=== PATIENT | male | born 1945 | race Caucasian/White ===

== ENCOUNTER 2020-11-24 04:56 | Emergency (ER) | payer MEDICARE, OTHER, SELFPAY ==
--- NOTE | ~2020-11-24 | XR_ITS ---
EXAMINATION: XR tibia fibula LT 2V DATE: 11/24/2020 06:03 INDICATION: Left lower leg injury. TECHNIQUE: 2 views of left tibia and fibula on 3 radiographs were obtained. COMPARISON: None. FINDINGS: There is a total left knee arthroplasty with patellar resurfacing in near-anatomic alignmen t. There is lucency subjacent to the medial aspect of the tibial tray. No fracture. The talar dome is normal. IMPRESSION: 1. Total left knee arthroplasty in near-anatomic alignment. Lucency subjacent to the medial aspect of the tibial tray may be the normal postoperative appearance or a sign of loosening or infection. Comp arison with postoperative radiographs is recommended. Reviewed, dictated and finalized at location A. IMPRESSION: 1. Total left knee arthroplasty in near-anatomic alignment. Lucency subjacent t o the medial aspect of the tibial tray may be the normal postoperative appearan ce or a sign of loosening or infection. Comparison with postoperative radiograp hs is recommended.
[2020-11-24 05:14] VITALS: BP 134/64; PULSE 72; RESP 21; TEMP 36.8; O2SAT 98
[2020-11-24 05:43] VITALS: PULSE 77; RESP 20; TEMP 38.6; O2SAT 97
--- NOTE | 2020-11-24 05:54 | PC.NURSE ---
Pt to XRAY via stretcher at this time.
[2020-11-24 06:06] LABS: Basophils Percent Auto 0.3 % (0.2-1.2); Eosinophils Absolute Auto 0.1 K/mm3 (0-0.3); Eosinophils Percent Auto 1.1 % (0-4.4); Hematocrit 51.6 % (42.0-52.0); Hemoglobin 17.3 g/dL (14.0-18.0); Immature Granulocyte Absolute 0.05 K/mm3 (0.00-0.031); Immature Granulocyte Percent A 0.5 % (0-0.5); Lymphocytes Absolute Auto 0.48 K/mm3 (0.9-3.2); Lymphocytes Percent Auto 4.7 % (18.3-44.2); Mean Corpuscular HGB Conc 33.5 g/dl (32-36); Mean Corpuscular Volume 95.6 fl (80-100); Mean Platelet Volume 10.8 fl (7.4-10.4); Monocytes Absolute Auto 0.1 K/mm3 (0.1-0.6); Monocytes Percent Auto 1.2 % (2.6-8.5); Neutrophils Absolute Auto 9.3 K/mm3 (1.3-6.7); Neutrophils Percent Auto 92.2 % (45.5-73.1); Platelet Count Result 124 k/mm3 (150-375); Red Cell Distribution Width 12.7 % (11.5-14.5); White Blood Count 10.1 K/mm3 (4.5-10.0)
[2020-11-24 06:11] LABS: Lactic Acid Reflex 1.7 mmol/L (0.7-2.1)
[2020-11-24 06:17] LABS: Alanine Aminotransferase 52 U/L (4-50); Albumin Level 4.6 g/dL (3.5-5.1); Alkaline Phosphatase 49 U/L (38-126); Anion Gap 9 mmol/L (8-16); Aspartate Amino Transferase 63 U/L (17-59); Bilirubin,Total 0.9 mg/dL (0.2-1.3); Blood Urea Nitrogen 54 mg/dL (9-20); CRP < 0.5 mg/dL (<1.0); Calcium 9.4 mg/dL (8.4-10.2); Carbon Dioxide 30 mmol/L (22-30); Chloride 100 mmol/L (98-107); Estimated CRCL calculation 49 ml/min; Estimated Glomerular Filt Rate 42; Glucose 131 mg/dL (65-110); Potassium 4.3 mmol/L (3.4-5.0); Sodium 139 mmol/L (137-145)
[2020-11-24 06:19] LABS: INR 1.7; Prothrombin Time 19.4 Seconds (11.1-14.7)
--- NOTE | 2020-11-24 06:29 | ED.EXTPRO ---
HPI - Extremity Problem General Chief complaint: Extremity Problem,Nontraumatic Stated complaint: left leg pain and redness Time Seen by Provider: 11/24/20 05:17 History of Present Illness HPI Narrative: Patient presents with left lower extremity pain. Patient reports he woke up with a burning sensation around his ankle and he thinks maybe he scratched it in the middle of the night. His pain got progressively worse and is radiating up his legs he wanted to come in for evaluation. Ports pain is achy, constant and radiates up his leg, worse when he touches it. He also reports subjective fevers at home denies any nausea or vomiting denies any chest pain or shortness of breath. Related Data Home Medications Medication Instructions Recorded Confirmed azelaic acid 15 % topical gel 1 applic TOPICAL BID 03/27/19 06/21/20 clopidogrel 75 mg tablet 75 mg PO DAILY 03/27/19 06/21/20 duloxetine 30 mg capsule,delayed 30 mg PO BID 03/27/19 06/21/20 release folic acid 1 mg tablet 1 mg PO DAILY 03/27/19 06/21/20 methotrexate sodium 2.5 mg tablet 7.5 mg PO WEEKLY tablet 03/27/19 06/21/20 metoprolol succinate 25 mg 25 mg PO DAILY 03/27/19 06/21/20 tablet,extended release 24 hr promethazine 25 mg tablet 25 mg PO QID PRN 03/27/19 06/21/20 furosemide 20 mg tablet 20 mg PO .EVERY OTHER DAY tablet 08/03/19 06/21/20 hydroxychloroquine 200 mg tablet 200 mg PO ONCE tablet 08/03/19 06/21/20 lisinopril 10 mg tablet 10 mg PO DAILY tablet 08/03/19 06/21/20 meclizine 25 mg tablet 25 mg PO TID PRN 08/03/19 06/21/20 rivaroxaban 20 mg tablet 15 mg PO DAILY tablet 08/03/19 06/21/20 Allergies Allergy/AdvReac Type Severity Reaction Status Date / Time No Known Allergies Allergy Verified 11/24/20 05:19 Review of Systems Review of Systems: CONSTITUTIONAL: Reports subjective fevers at home EYES: Denies visual changes, redness, or discharge. ENT: Denies rhinorrhea, congestion, sore throat, or otalgia. CARDIOVASCULAR: Denies chest pain, palpitations, or edema. RESPIRATORY: Denies cough or dyspnea. GASTROINTESTINAL: Denies abdominal pain, nausea, vomiting, or diarrhea. GENITOURINARY: Denies dysuria or hematuria. SKIN: Denies rash or itching. MUSCULOSKELETAL: Denies back pain, or myalgia. NEUROLOGIC: Denies headache, numbness, dizziness, or weakness. PSYCHIATRIC: Denies anxiety or depression. All systems reviewed & are unremarkable except as noted in HPI and below PMFSH Surgical History Surgical History H/O aortic valve replacement H/O arthroscopy of knee H/O arthroscopy of shoulder H/O cardiac radiofrequency ablation H/O shoulder replacement History of knee replacement S/P CABG x 3 Family History Family History Grandparent Cerebrovascular accident Father Family history of malignant neoplasm Other No family history of cardiovascular disease No family history of diabetes mellitus No family history of hypertension No family history of malignant neoplasm Social History Social History Second hand tobacco smoke exposure: No Alcohol intake: current Exam Narrative: GENERAL: Well-appearing, well-nourished, and in no acute distress. HEAD: Normocephalic, atraumatic. EYES: PERRLA and EOMI. ENT: Nares clear, no rhinorrhea or epistaxis. Mucous membranes moist. NECK: Supple. No masses. No JVD EXTREMITIES: Moderate size area of erythema just proximal to the left ankle up to about the mid lower leg. It is warm and exquisitely tender to palpation there is no open or draining wounds there are no focal areas of fluctuance or edema. SKIN: Warm, dry, no rash. NEURO: No focal deficits. Alert and oriented x3. PSYCH: Normal mood and affect. Course Reevaluation(s) Reevaluation #1: Patient is resting comfortably reported feeling much improved. Work-up reviewed with patient patient comfortable
[2020-11-24 06:51] VITALS: BP 120/73; PULSE 81; RESP 17; TEMP 38.3; O2SAT 97
--- NOTE | 2020-11-24 06:52 | PC.NURSE ---
called laboratory and added labs ordered - spoke to Rufina
[2020-11-24 07:23] LABS: Erythrocyte Sedimentation Rate 2 mm/hr (0-20)
== END 2020-11-24 08:07 | disposition home or self-care (01) ==
PROVIDERS: Emergency Provider Emergency Medicine; PCP Family Medicine
DX: L03.116 Cellulitis of left lower limb (principal); Z79.01 Long term (current) use of anticoagulants; Z95.2 Presence of prosthetic heart valve; Z95.1 Presence of aortocoronary bypass graft; Z96.619 Presence of unspecified artificial shoulder joint; Z96.652 Presence of left artificial knee joint
CPT/HCPCS: 36415; 73590; 80053; 83605; 85025; 85055; 85610; 85652; 85730; 86140; 87040; 87077; 87186; 96365; 99284; J0131

== ENCOUNTER 2022-05-16 13:53 | Emergency (ER) | payer MEDICARE, OTHER, SELFPAY ==
[2022-05-16 14:03] VITALS: BP 98/55; PULSE 65; RESP 16; TEMP 36.5; O2SAT 97
[2022-05-16 14:09] VITALS: BP 98/55; PULSE 65; RESP 16; TEMP 36.5; O2SAT 97
--- NOTE | 2022-05-16 14:18 | ED.EXTPRO ---
HPI - Extremity Problem General Chief complaint: Extremity Problem,Nontraumatic Stated complaint: L LEG REDNESS Time Seen by Provider: 05/16/22 14:17 Source: patient and RN notes reviewed Mode of arrival: ambulatory Limitations: dementia History of Present Illness HPI Narrative: 77-year-old male presents concern for erythema to the left leg. Reports he noticed it was red and sore yesterday, the redness has spread up his leg to his groin. He reports chills yesterday in general malaise. MD Complaint: extremity pain Related Data Home Medications Medication Instructions Recorded Confirmed azelaic acid 15 % topical gel 1 applic topical BID 03/27/19 05/16/22 (Finacea) clopidogrel 75 mg tablet (Plavix) 75 mg PO DAILY 03/27/19 05/16/22 duloxetine 30 mg capsule,delayed 30 mg PO BID 03/27/19 05/16/22 release folic acid 1 mg tablet 1 mg PO DAILY 03/27/19 05/16/22 metoprolol succinate 25 mg 25 mg PO DAILY 03/27/19 05/16/22 tablet,extended release 24 hr promethazine 25 mg tablet 25 mg PO QID 03/27/19 05/16/22 furosemide 20 mg tablet 40 mg PO DAILY 08/03/19 05/16/22 lisinopril 10 mg tablet 5 mg PO DAILY 08/03/19 05/16/22 meclizine 25 mg tablet 25 mg PO TID 08/03/19 05/16/22 rivaroxaban 20 mg tablet (Xarelto) 15 mg PO DAILY 08/03/19 05/16/22 Allergies Allergy/AdvReac Type Severity Reaction Status Date / Time No Known Allergies Allergy Verified 05/16/22 14:01 Review of Systems Review of Systems: CONSTITUTIONAL: Reports malaise, chills. Denies fever. EYES: Denies redness, or discharge. CARDIOVASCULAR: Denies chest pain, palpitations, or edema. RESPIRATORY: Denies cough or dyspnea. GASTROINTESTINAL: Denies abdominal pain, nausea, vomiting SKIN: Reports redness, swelling, tenderness to the left lower leg, upper leg, groin. MUSCULOSKELETAL: Denies myalgia. NEUROLOGIC: Denies headache. All systems reviewed & are unremarkable except as noted in HPI and below PMFSH Past Medical History Medical History (Updated 05/16/22 @ 14:35 by Shantel Christie NP) Drooling Rheumatoid arthritis Tinea corporis Surgical History Surgical History H/O aortic valve replacement H/O arthroscopy of knee H/O arthroscopy of shoulder H/O cardiac radiofrequency ablation H/O shoulder replacement History of knee replacement S/P CABG x 3 Family History Family History Grandparent Cerebrovascular accident Father Family history of malignant neoplasm Other No family history of cardiovascular disease No family history of diabetes mellitus No family history of hypertension No family history of malignant neoplasm Social History Social History (Updated 05/07/22 @ 09:30 by Ana Nicole) Smoking status: Never smoker Second hand tobacco smoke exposure: No Alcohol intake: current Substance use: never Lack of Transportation: No Lack of Food: Never True Current Housing: I Have Housing Concerned About Future Housing: No Difficulty Paying Gas/Electric Bills: No Difficulty Paying for Meds: No Currently Unemployed: No Education: High School Diploma/GED Difficulty w/ Childcare or Family Care: No Comments At time of signature, agree with nursing past medical, surgical, social and family history. There is no relevant family history pertinent to the presenting complaint Exam Narrative: GENERAL: Well-appearing, well-nourished, and in no acute distress. HEAD: Normocephalic, atraumatic. EYES: PERRLA, conjunctivae clear ENT: Mucous membranes moist. NECK: Supple. No lymphadenopathy CHEST: Clear to auscultation. No respiratory distress. HEART: Regular rate and rhythm. SKIN: Warm, dry. Circumferential erythema, induration, tenderness, warmth noted to the left lower leg with streaking up the inner leg to the groin, ending in an area of induration and erythema at the groin approximately 15 by 15 cm. No vesicles, bullae,
== END 2022-05-16 14:25 | disposition short-term general hospital (02) ==
PROVIDERS: Emergency Provider Nurse Practitioner; PCP Family Medicine
DX: L03.116 Cellulitis of left lower limb (principal); I95.9 Hypotension, unspecified; I25.10 Atherosclerotic heart disease of native coronary artery without angina pectoris; I48.91 Unspecified atrial fibrillation; Z79.01 Long term (current) use of anticoagulants
CPT/HCPCS: 99212; G0463

== ENCOUNTER 2022-05-16 14:47 | Inpatient (IN) | payer MEDICARE, OTHER, SELFPAY ==
[2022-05-16] VITALS (10 sets, daily range): BP systolic 105–140; BP diastolic 57–81; PULSE 41–58; RESP 16–20; TEMP 35.7–36.9; O2SAT 96–100
--- NOTE | ~2022-05-16 | XR_ITS ---
EXAMINATION: XR tibia fibula LT 2V INDICATION: Left lower limb pain and swelling TECHNIQUE: Two views of the left tibia and fibula are obtained on four radiographs. COMPARISON: 11/24/2020 FINDINGS: Again noted are changes of total left knee arthroplasty with patellar resurfacing. There is no fracture the soft tissues are unremarkable. A plantar calcaneal enthesophyte is noted. IMPRESSION: 1. No acute osseous abnormality. Reviewed, dictated and finalized at location F. ENTATION ENGINEER
--- NOTE | ~2022-05-16 | US_ITS ---
EXAMINATION: US venous doppler [facility] DATE: 05/16/2022 16:30 INDICATION: Left lower limb pain and swelling. TECHNIQUE: Grayscale ultrasound images without and with compression and Doppler ultrasound images of the left lower extremity veins were obtained. COMPARISON: None. FINDINGS: The visualized portions of left common femoral vein, profunda (deep) femoral vein, femoral vein, popl iteal vein, posterior tibial veins, and greater saphenous vein outflow are patent. The peroneal veins are not well visualized. IMPRESSION: 1. No deep venous thrombosis. Reviewed, dictated and finalized at location A. DEVELOPMENT INTERN
--- NOTE | ~2022-05-16 | US_ITS ---
EXAMINATION: US venous doppler [facility] DATE: 05/21/2022 19:03 INDICATION: left lower leg swallen and erythema . TECHNIQUE: Grayscale images without and with compression and Doppler images of the bilateral lower ex tremity veins were obtained. COMPARISON: None FINDINGS: The right common femoral vein, profunda (deep) femoral vein, femoral vein, popliteal vein, peroneal v ein, posterior tibial veins, gastrocnemius vein, and greater saphenous vein are patent. The left common femoral vein, profunda femoral vein, femoral vein, popliteal vein, peroneal vein, pos terior tibial veins, gastrocnemius vein, and greater saphenous vein are patent. Left leg edema. IMPRESSION: 1. Patent bilateral lower extremity veins. No evidence of deep venous thrombosis. Reviewed, dictated and finalized at location K. ECTIVE SERVICES SOCIAL WORKER IMPRESSION: 1. Patent bilateral lower extremity veins. No evidence of deep venous thrombos is.
--- NOTE | ~2022-05-16 | US_ITS ---
EXAMINATION: US venous doppler [facility] DATE: 05/16/2022 22:01 INDICATION: Left lower limb edema TECHNIQUE: [place] scale images without and with compression and Doppler images of the left lower extrem ity veins were obtained. COMPARISON: 1621 hours FINDINGS: The left common femoral vein, profunda femoral vein, femoral vein, popliteal vein, posterio r tibial veins, and greater saphenous vein are patent. The peroneal veins are not well visualized. IMPRESSION: 1. No evidence of deep venous thrombosis. Reviewed, dictated and finalized at location F. NG MACHINE OPERATOR ZIPPER
[2022-05-16 15:46] LABS: Basophils Percent Auto 0.2 % (0.2-1.2); Eosinophils Absolute Auto 0.2 K/mm3 (0-0.3); Eosinophils Percent Auto 2.6 % (0-4.4); Hematocrit 45.4 % (42.0-52.0); Hemoglobin 15.2 g/dL (14.0-18.0); Immature Granulocyte Absolute 0.03 K/mm3 (0.00-0.031); Immature Granulocyte Percent A 0.4 % (0-0.5); Immature Platelet Fraction Pct 5.6 % (0.9-11.2); Lymphocytes Absolute Auto 0.62 K/mm3 (0.9-3.2); Lymphocytes Percent Auto 7.7 % (18.3-44.2); Mean Corpuscular HGB Conc 33.5 g/dl (32-36); Mean Corpuscular Hemoglobin 31.5 pg (26-34); Mean Corpuscular Volume 94.2 fl (80-100); Mean Platelet Volume 10.6 fl (7.4-10.4); Monocytes Absolute Auto 0.7 K/mm3 (0.1-0.6); Monocytes Percent Auto 8.5 % (2.6-8.5); Neutrophils Absolute Auto 6.5 K/mm3 (1.3-6.7); Neutrophils Percent Auto 80.6 % (45.5-73.1); Platelet Count Result 117 k/mm3 (150-375); Red Blood Count 4.82 M/mm3 (4.6-6.20); Red Cell Distribution Width 13.2 % (11.5-14.5); White Blood Count 8.1 K/mm3 (4.5-10.0)
[2022-05-16 15:57] LABS: Anion Gap 7 mmol/L (8-16); Blood Urea Nitrogen 55 mg/dL (9-20); CRP 1.3 mg/dL (<1.0); Calcium 8.9 mg/dL (8.4-10.2); Carbon Dioxide 28 mmol/L (22-30); Chloride 104 mmol/L (98-107); Estimated CRCL calculation 45 ml/min; Estimated Glomerular Filt Rate 42; Glucose 138 mg/dL (65-110); Potassium 3.9 mmol/L (3.4-5.0); Sodium 139 mmol/L (137-145)
[2022-05-16] MEDS: HYDROcodone/acetaminophen (*CRX) 5-325 MG TABLET 1 TAB PO (16:08)
--- NOTE | 2022-05-16 20:35 | ED.GENADULT ---
HPI - General Adult General Chief complaint: Skin/Abscess/Foreign Body Stated complaint: left leg swelling Time Seen by Provider: 05/16/22 20:29 Source: patient, family and RN notes reviewed History of Present Illness HPI narrative: Patient presents emergency department from urgent care for left leg redness. The history is per the patient as well as the patient's that is present. Patient presents for redness and swelling of the left leg. States that it began yesterday and is progressively worsened today with streaking up the inner thigh up into the groin. States that the redness is also worsened as well redness is noted over the anterior lower leg and extends over the medial and lateral aspects there is no open wounds or drainage patient denies any trauma or injury. Patient denies having any diabetes states he gone to the urgent care and they recommend he come in for further evaluation the patient is on Xarelto. He denies having any fevers states the leg is achy in nature Related Data Home Medications Medication Instructions Recorded Confirmed azelaic acid 15 % topical gel 1 applic topical BID 03/27/19 05/16/22 (Finacea) clopidogrel 75 mg tablet (Plavix) 75 mg PO DAILY 03/27/19 05/16/22 duloxetine 30 mg capsule,delayed 30 mg PO BID 03/27/19 05/16/22 release folic acid 1 mg tablet 1 mg PO DAILY 03/27/19 05/16/22 metoprolol succinate 25 mg 25 mg PO DAILY 03/27/19 05/16/22 tablet,extended release 24 hr promethazine 25 mg tablet 25 mg PO QID 03/27/19 05/16/22 furosemide 20 mg tablet 40 mg PO DAILY 08/03/19 05/16/22 lisinopril 10 mg tablet 5 mg PO DAILY 08/03/19 05/16/22 meclizine 25 mg tablet 25 mg PO TID 08/03/19 05/16/22 rivaroxaban 20 mg tablet (Xarelto) 15 mg PO DAILY 08/03/19 05/16/22 Allergies Allergy/AdvReac Type Severity Reaction Status Date / Time No Known Allergies Allergy Verified 05/16/22 14:01 Review of Systems Review of Systems: Gen.: Denies fevers or chills ENT: Denies congestion Respiratory: Denies shortness of breath or cough CV: Denies chest pain or palpitations GI: Denies abdominal pain nausea, emesis Musculoskeletal: HPI Neuro: Denies numbness, tingling, weakness or focal weakness Skin: Reports left leg cellulitis Except as documented, all other systems reviewed and negative [facility] Past Medical History Medical History Drooling Rheumatoid arthritis Tinea corporis Surgical History Surgical History H/O aortic valve replacement H/O arthroscopy of knee H/O arthroscopy of shoulder H/O cardiac radiofrequency ablation H/O shoulder replacement History of knee replacement S/P CABG x 3 Family History Family History Grandparent Cerebrovascular accident Father Family history of malignant neoplasm Other No family history of cardiovascular disease No family history of diabetes mellitus No family history of hypertension No family history of malignant neoplasm Social History Social History Smoking status: Never smoker Second hand tobacco smoke exposure: No Alcohol intake: current Substance use: never Lack of Transportation: No Lack of Food: Never True Current Housing: I Have Housing Concerned About Future Housing: No Difficulty Paying Gas/Electric Bills: No Difficulty Paying for Meds: No Currently Unemployed: No Education: High School Diploma/GED Difficulty w/ Childcare or Family Care: No Exam Narrative: APPEARANCE: No acute distress, nontoxic, resting in bed EYES: EOMI HEENT: Normocephalic, atraumatic, OMM RESPIRATORY: No respiratory distress Clear to auscultation bilaterally with no rhonchi wheezing or rales. CARDIOVASCULAR: Irregular irregular without murmurs rubs or gallops. ABDOMINAL: Soft, nontender, nondistended, no rebound or guard
--- NOTE | 2022-05-16 21:12 | PM.IMHP ---
H&P: HPI History of Present Illness Date/Time: 05/16/22 21:12 Chief Complaint: 77 years old male with past medical history of gout coronary artery disease on Plavix AFib on Xarelto and metoprolol hypertension narcolepsy obstructive sleep apnea presented to the hospital with left leg redness started yesterday worsening rapidly associated with throbbing pain associated with leg swelling at the ER patient has relative hypotension blood pressure was an 88 has significant swelling of the legs associated with redness and lymphangitis patient was admitted to the hospital for further evaluation and treatment of cellulitis started IV antibiotic culture pending Review of Systems Review of Systems: Twelve system review was done negative except above PMFSH Past Medical History Medical History Drooling Rheumatoid arthritis Tinea corporis Surgical History Surgical History H/O aortic valve replacement H/O arthroscopy of knee H/O arthroscopy of shoulder H/O cardiac radiofrequency ablation H/O shoulder replacement History of knee replacement S/P CABG x 3 Family History Family History Grandparent Cerebrovascular accident Father Family history of malignant neoplasm Other No family history of cardiovascular disease No family history of diabetes mellitus No family history of hypertension No family history of malignant neoplasm Social History Social History Smoking status: Never smoker Second hand tobacco smoke exposure: No Alcohol intake: current Substance use: never Lack of Transportation: No Lack of Food: Never True Current Housing: I Have Housing Concerned About Future Housing: No Difficulty Paying Gas/Electric Bills: No Difficulty Paying for Meds: No Currently Unemployed: No Education: High School Diploma/GED Difficulty w/ Childcare or Family Care: No Meds Home Medications and Allergies Home Medications Medication Instructions Recorded Confirmed Type azelaic acid 15 % topical gel 1 applic topical BID 03/27/19 05/16/22 History (Finacea) clopidogrel 75 mg tablet (Plavix) 75 mg PO DAILY 03/27/19 05/16/22 History duloxetine 30 mg capsule,delayed 30 mg PO BID 03/27/19 05/16/22 History release folic acid 1 mg tablet 1 mg PO DAILY 03/27/19 05/16/22 History metoprolol succinate 25 mg 25 mg PO DAILY 03/27/19 05/16/22 History tablet,extended release 24 hr promethazine 25 mg tablet 25 mg PO QID 03/27/19 05/16/22 History furosemide 20 mg tablet 40 mg PO DAILY 08/03/19 05/16/22 History lisinopril 10 mg tablet 5 mg PO DAILY 08/03/19 05/16/22 History meclizine 25 mg tablet 25 mg PO TID 08/03/19 05/16/22 History rivaroxaban 20 mg tablet (Xarelto) 15 mg PO DAILY 08/03/19 05/16/22 History triamcinolone acetonide 0.1 % 1 applic topical QID #453.6 grams 06/21/20 05/16/22 Rx topical cream tocilizumab 162 mg/0.9 mL 162 mg (0.9 mL) subcut WEEKLY #0.9 01/03/21 05/16/22 Rx subcutaneous syringe (Actemra) mL allopurinol 300 mg tablet See Rx Instructions .Route 08/07/21 05/16/22 Rx .COMPLEX #90 tabs tamsulosin 0.4 mg capsule See Rx Instructions .Route 09/11/21 05/16/22 Rx .COMPLEX #90 caps ezetimibe 10 mg tablet See Rx Instructions .Route 01/08/22 05/16/22 Rx .COMPLEX #90 tabs fenofibrate 160 mg tablet See Rx Instructions .Route 02/26/22 05/16/22 Rx .COMPLEX #90 tabs modafinil 100 mg tablet (Provigil) 100 mg PO QAM PRN sleepinesss #30 04/30/22 05/16/22 Rx tabs gabapentin 300 mg capsule 300 mg PO TID #90 caps 05/16/22 05/16/22 Rx Allergies Allergy/AdvReac Type Severity Reaction Status Date / Time No Known Allergies Allergy Verified 05/16/22 14:01 Vital Signs Vital Signs - 24 hr 05/16/22 15:30 05/16/22 17:20 Temperature 98.4 F 97.5 F L Pulse Rate 58 L 54 L Re
--- NOTE | 2022-05-16 21:48 | ECG_ITS ---
Measurements Intervals [place] Rate: 52 P: SD: 0 QRS: 6 QRSD: 128 T: 125 QT: 484 QTc: 451 Interpretive Statements ATRIAL FIBRILLATION WITH SLOW VENTRICULAR RESPONSE INTRAVENTRICULAR CONDUCTION DELAY ANTEROSEPTAL INFARCT, AGE INDETERMINATE ST-T WAVE ABNORMALITY IN HIGH LATERAL LEADS- CONSIDER ISCHEMIA ABNORMAL ECG NO PREVIOUS ECG AVAILABLE FOR COMPARISON Electronically Signed On 05-17-2022 12:50:25 METERS SUPERINTENDENT by Sadiq Boone D.O.
[2022-05-16] MEDS: ceFAZolin 1 GM/NS 50 ML 1 GM/50 ML BAG IVPB (21:50)
[2022-05-16] MEDS: SODIUM CHLORIDE 0.9% IV 1,000 ML 100 ML IV CONT (22:01)
[2022-05-16] MEDS: MORPHINE SULFATE (*CRX) 2 MG/ML INJ IV PUSH (22:02)
[2022-05-16 22:17] LABS: INR 1.3; Prothrombin Time 15.5 Seconds (11.1-14.7)
[2022-05-16 22:18] LABS: Partial Thromboplastin Time 31.7 SECONDS (22.3-36.8)
[2022-05-16 23:29] LABS: Troponin I 0.014 ng/mL (0.000-0.034)
--- NOTE | 2022-05-16 23:50 | ADMGEN ---
This patient, Edmundo Aguirre, was admitted to [facility] Surg Room 306-02. Patient/family oriented to hospital policies and general routines including ID bracelet, bed and alarms, visiting hours, pain management, procedures, bathroom and other care routines, personal items, smoking policy, room service/diet, and visiting hours. Information on how to activate the Rapid Response Team has been discussed. Patient/Family are encouraged to report perceived risks to care and to ask questions if they do not understand what they are told or what they should do.
[2022-05-17] VITALS (10 sets, daily range): BP systolic 141–167; BP diastolic 51–75; PULSE 47–68; RESP 14–18; TEMP 35.9–36.1; O2SAT 94–100; BMI 37.3
[2022-05-17 01:39] LABS: Alveolar/Arterial O2 Gradient 21.9 mmHg; Base Excess ABG 0.7 mEq/l (+/-2.0); Fractional Inspired Oxygen 21 %; HCO3 ABG 26.1 mEq/l (22.0-26.0); Oxygen Content ABG 20.1 %vol (16.0-22.0); Oxygen Saturation ABG 94.8 % (95.0-100.0); Oxyhemoglobin 93.2 % THb (90.0-100.0); PCO2 ABG 44.5 mmHg (35.0-45.0); PO2 ABG 74.5 mmHg (80.0-100.0); PO2 FiO2 Ratio Arterial Blood 3.55 %; Total Hemoglobin 15.3 g/dL (12.0-18.0); pH ABG 7.386 (7.350-7.450)
[2022-05-17 05:10] LABS: Device ROOM AIR; Modified Allen's Test Pass; Site Drawn LEFT RADIAL
[2022-05-17 07:15] LABS: Basophils Percent Auto 0.3 % (0.2-1.2); Eosinophils Absolute Auto 0.3 K/mm3 (0-0.3); Hematocrit 45.2 % (42.0-52.0); Immature Granulocyte Absolute 0.03 K/mm3 (0.00-0.031); Immature Granulocyte Percent A 0.4 % (0-0.5); Immature Platelet Fraction Pct 6.6 % (0.9-11.2); Lymphocytes Absolute Auto 0.76 K/mm3 (0.9-3.2); Lymphocytes Percent Auto 10.4 % (18.3-44.2); Mean Corpuscular HGB Conc 33.2 g/dl (32-36); Mean Corpuscular Hemoglobin 31.8 pg (26-34); Mean Corpuscular Volume 95.8 fl (80-100); Mean Platelet Volume 11.2 fl (7.4-10.4); Monocytes Percent Auto 13.4 % (2.6-8.5); Neutrophils Absolute Auto 5.2 K/mm3 (1.3-6.7); Neutrophils Percent Auto 71.5 % (45.5-73.1); Platelet Count Result 108 k/mm3 (150-375); Red Blood Count 4.72 M/mm3 (4.6-6.20); Red Cell Distribution Width 13.2 % (11.5-14.5); White Blood Count 7.3 K/mm3 (4.5-10.0)
[2022-05-17 07:24] LABS: Alanine Aminotransferase 66 U/L (6-50); Albumin Level 3.9 g/dL (3.5-5.1); Alkaline Phosphatase 40 U/L (38-126); Anion Gap 5 mmol/L (8-16); Aspartate Amino Transferase 55 U/L (17-59); Bilirubin,Total 0.7 mg/dL (0.2-1.3); Blood Urea Nitrogen 46 mg/dL (9-20); Calcium 8.5 mg/dL (8.4-10.2); Carbon Dioxide 31 mmol/L (22-30); Chloride 104 mmol/L (98-107); Estimated CRCL calculation 61 ml/min; Estimated Glomerular Filt Rate 58; Glucose 114 mg/dL (65-110); Potassium 4.3 mmol/L (3.4-5.0); Sodium 140 mmol/L (137-145)
[2022-05-17 07:33] LABS: Troponin I 0.012 ng/mL (0.000-0.034)
[2022-05-17 07:46] LABS: Glucose Point of Care 103 mg/dl (65-105)
[2022-05-17] MEDS: TAMSULOSIN HCL 0.4 MG CAPSULE PO (09:06)
[2022-05-17] MEDS: MULTIVITAMINS THERAPEUTIC TAB (*BKC) 1 TABLET PO (09:06)
[2022-05-17] MEDS: GABAPENTIN 300 MG CAPSULE PO (09:06)
[2022-05-17] MEDS: allopurinoL 300 MG TABLET PO (09:06)
[2022-05-17] MEDS: OMEGA 3 POLYUNSAT FATTY ACIDS 1 GM CAP PO ×2 (09:07→17:00)
[2022-05-17] MEDS: lisinopriL 5 MG TABLET PO (09:07)
[2022-05-17] MEDS: DULoxetine HCL 30 MG CAPSULE.DR PO ×2 (09:07→17:00)
[2022-05-17] MEDS: FAMOTIDINE 20 MG TABLET PO ×2 (09:07→20:29)
[2022-05-17] MEDS: FUROSEMIDE 40 MG TABLET PO (09:07)
[2022-05-17] MEDS: VITAMIN E 1,000 UNIT CAPSULE 1000 UNIT PO ×2 (09:07→17:00)
[2022-05-17] MEDS: ceFAZolin 1 GM/NS 50 ML 1 GM/50 ML BAG IVPB ×2 (09:15→20:31)
[2022-05-17] MEDS: modafiniL (*CRX) 100 MG TABLET PO (09:18)
[2022-05-17] MEDS: DOXYCYCLINE 100 MG/NS 100 ML 100 MG/100 ML BAG IVPB ×2 (09:54→21:07)
--- NOTE | 2022-05-17 11:04 | ECG_ITS ---
Measurements Intervals [place] Rate: 54 P: [place]: 0 QRS: -11 QRSD: 114 T: 141 QT: 433 QTc: 412 Interpretive Statements ATRIAL FIBRILLATION WITH SLOW VENTRICULAR RESPONSE VENTRICULAR PREMATURE COMPLEX INTRAVENTRICULAR CONDUCTION DELAY ANTEROSEPTAL INFARCT, AGE INDETERMINATE ST-T WAVE ABNORMALITY IN HIGH LATERAL LEADS- CONSIDER ISCHEMIA ABNORMAL ECG COMPARED TO ECG 05/16/2022 21:48:00 NO SIGNIFICANT CHANGES Electronically Signed On 05-17-2022 15:46:21 POSTAL SUPERVISOR by Sadiq Boone D.O.
--- NOTE | 2022-05-17 11:05 | PM.CNCAR ---
Assessment and Plan Assessment and plan (1) Atrial fibrillation with slow ventricular response: Code(s): I48.91 - Unspecified atrial fibrillation Status: Acute Assessment and Plan: He has a history of atrial fibrillation and atrial flutter status post ablation x2 in the past in [facility]. Persistent longstanding atrial fibrillation with slow ventricular response, asymptomatic, hemodynamically stable previously on Toprol XL 25 mg daily which has been held. Heart rate slower overnight while asleep without supporting CPAP initially. Continue to hold Toprol XL for now. Resume if heart rate significant elevated, tachycardic. May consider resuming at 12.5 mg daily, however, anticipate follow-up with Dr. Vance in the office within the next month or so upon discharge further guidance in this regard. Continue systemic anticoagulation without interruption for now. Monitor for bleeding. Stable at present. Heart rate will improve off beta-alejandro therapy and nocturnal heart rate was stabilized with ongoing CPAP. Slower heart rate response is not a concern and less prolonged pauses greater than 5 seconds, symptomatic bradycardia and or hypotension attributed to bradycardia. None of these concerns have manifested to date. Continue telemetry today and if stable over the next 24 hours may consider discontinuation provided no new concerns arise. - Check 12 lead ECG. - Check TSH. - Monitor renal function electrolytes. (2) Cellulitis of left leg: Code(s): L03.116 - Cellulitis of left lower limb Status: Acute Assessment and Plan: Management per primary service. Improving on IV antibiotics. Blood cultures pending. Discussed concern if systemic infection with bacteremia identified given bioprosthetic aortic valve replacement. If new murmur, fever, leukocytosis will obtain 2D echocardiogram this hospitalization. However, for now, he has an echocardiogram scheduled as an outpatient so hold off for now unless new concerns arises. discussed with the patient verbalized understanding and agreed with plan of care. (3) Ischemic cardiomyopathy: Code(s): I25.5 - Ischemic cardiomyopathy Status: Acute Assessment and Plan: History cardiomyopathy with significant improvement in EF after stent implantation 2017. Echocardiogram scheduled as an outpatient as above. Patient is not decompensated heart failure. Continue present cardiovascular medical therapy with clopidogrel, Zetia, fenofibrate. however, patient should be managed with a statin therapy unless contraindication or intolerance of past which has not been documented. LDL 05/12/21 77, suboptimal control goal LDL< 70. (4) LOWELL (acute kidney injury): Code(s): N17.9 - Acute kidney failure, unspecified Status: Acute Assessment and Plan: Improved with IV fluids. avoid excessive hypotension. Minimize nephrotoxic agents as is feasible. (5) CAD (coronary artery disease): Code(s): I25.10 - Atherosclerotic heart disease of [place] coronary artery without angina pectoris Status: Acute Assessment and Plan: As above. Clopidogrel 75 mg daily. (6) Obstructive sleep apnea (adult) (pediatric): Code(s): G47.33 - Obstructive sleep apnea (adult) (pediatric) Status: Acute Assessment and Plan: Continued treatment of SAVANNAH with CPAP. (7) Mixed hyperlipidemia: Code(s): E78.2 - Mixed hyperlipidemia Status: Acute Assessment and Plan: As above. (8) S/P aortic valve replacement with bioprosthetic valve: Code(s): Z95.3 - Presence of xenogenic heart valve Status: Acute Assessment and Plan: Prophylactic antibiotics prior to dental /surgical procedures. No acute issues at this time. (9) History of coronary artery bypass graft: Code(s): Z95.1 - Presence of aortocoronary bypass graft Status: Acute Assessment and Plan: Remote history of CA
[2022-05-17 11:59] LABS: Glucose Point of Care 112 mg/dl (65-105)
[2022-05-17] MEDS: HYDROcodone/acetaminophen (*CRX) 5-325 MG TABLET 1 TAB PO ×2 (14:07→22:20)
--- NOTE | 2022-05-17 15:11 | PM.IMPN ---
Progress Note: A&P Assessment and Plan (1) Cellulitis: Code(s): L03.90 - Cellulitis, unspecified Status: Inactive Assessment and Plan: Will get Doppler of lower extremity Give IV antibiotic Elevate left leg Neurovascular check IV antibiotics Follow culture results 05/17/2022 interval history: 77-year-old male presented with redness, swelling, and painful left lower extremity patient states he had been bumped leg againts things and developed scab resulting in cellulitis, patient was started on cefazolin will add doxycycline, will do the nasal swab to rule out MRSA, will follow-up on blood cultures further recommendation to follow, patient with history of atrial fib upon arrival the rate was slow seen by cardiology recommended to hold metoprolol unless he goes into tachycardia will continue to monitor, will have a PT OT evaluate the patient and further recommendation to follow. (2) Hypotension: Code(s): I95.9 - Hypotension, unspecified Status: Inactive Assessment and Plan: Most likely related to dehydration give IV fluid monitor closely as patient has history of CHF (3) Rheumatoid arthritis: Qualifiers: Rheumatoid arthritis location: unspecified site Rheumatoid factor presence: unspecified presence Qualified Code(s): M06.9 - Rheumatoid arthritis, unspecified Code(s): M06.9 - Rheumatoid arthritis, unspecified Status: Acute Assessment and Plan: Stable continue to monitor (4) CAD (coronary artery disease): Code(s): I25.10 - Atherosclerotic heart disease of [place] coronary artery without angina pectoris Status: Acute Assessment and Plan: Patient on Plavix and beta-alejandro resume once medication confirm (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: Code(s): G47.419 - Narcolepsy without cataplexy Status: Acute Assessment and Plan: Continue to monitor continue home medication (6) PVD (peripheral vascular disease): Code(s): I73.9 - Peripheral vascular disease, unspecified Status: Acute Assessment and Plan: On Plavix continue home medication pending home medication reconciliation (7) Obstructive sleep apnea (adult) (pediatric): Code(s): G47.33 - Obstructive sleep apnea (adult) (pediatric) Status: Acute Assessment and Plan: Continue home medication (8) Nonrheumatic aortic valve disorder, unspecified: Code(s): I35.9 - Nonrheumatic aortic valve disorder, unspecified Status: Acute Assessment and Plan: Follow-up with PCP (9) Mixed hyperlipidemia: Code(s): E78.2 - Mixed hyperlipidemia Status: Acute Assessment and Plan: Resume statin (10) Gastro-esophageal reflux disease without esophagitis: Code(s): K21.9 - Gastro-esophageal reflux disease without esophagitis Status: Acute Assessment and Plan: Pepcid (11) Cardiomyopathy as manifestation of underlying disease: Code(s): I43 - Cardiomyopathy in diseases classified elsewhere Status: Acute Assessment and Plan: Avoid fluid overload (12) LOWELL (acute kidney injury): Code(s): N17.9 - Acute kidney failure, unspecified Status: Acute Assessment and Plan: Acute on top of chronic renal failure stage 3 avoid nephrotoxic medication give IV fluid most likely related to dehydration (13) Afib: Code(s): I48.91 - Unspecified atrial fibrillation Status: Acute Assessment and Plan: Patient on beta-alejandro and Xarelto pending home medication reconciliation A.m. team to follow (14) Bradycardia: Code(s): R00.1 - Bradycardia, unspecified Status: Acute Assessment and Plan: Patient had episodes of bradycardia heart rate around between 46-55 according to the patient his heart rate normally runs in 60s Monitor closely Telemetry Cardiology consult Subjective Date/time seen: 05/17/22 15:11 HPIChief Complaint:redness, swelling a
[2022-05-17] MEDS: SODIUM CHLORIDE 0.9% IV 1,000 ML 100 ML IV CONT (16:58)
[2022-05-17] MEDS: RIVAROXABAN 15 MG TABLET PO (17:00)
[2022-05-17] MEDS: CLOPIDOGREL BISULFATE 75 MG TABLET PO (17:01)
[2022-05-17] MEDS: GABAPENTIN 300 MG CAPSULE 600 MG PO (20:29)
[2022-05-17] MEDS: FENOFIBRATE 160 MG TABLET PO (20:29)
[2022-05-17] MEDS: EZETIMIBE 10 MG TABLET PO (20:29)
[2022-05-18] VITALS (10 sets, daily range): BP systolic 143–170; BP diastolic 79–89; PULSE 40–80; RESP 14–20; TEMP 36.1–36.3; O2SAT 95–100
[2022-05-18] MEDS: HYDROcodone/acetaminophen (*CRX) 5-325 MG TABLET 1 TAB PO ×2 (02:10→10:29)
[2022-05-18] MEDS: SODIUM CHLORIDE 0.9% IV 1,000 ML 100 ML IV CONT ×4 (05:30→20:48)
[2022-05-18 06:26] LABS: Basophils Percent Auto 0.6 % (0.2-1.2); Eosinophils Absolute Auto 0.3 K/mm3 (0-0.3); Eosinophils Percent Auto 6.6 % (0-4.4); Hematocrit 43.2 % (42.0-52.0); Hemoglobin 14.2 g/dL (14.0-18.0); Immature Granulocyte Absolute 0.02 K/mm3 (0.00-0.031); Immature Granulocyte Percent A 0.4 % (0-0.5); Immature Platelet Fraction Pct 6.8 % (0.9-11.2); Lymphocytes Percent Auto 15.5 % (18.3-44.2); Mean Corpuscular HGB Conc 32.9 g/dl (32-36); Mean Corpuscular Hemoglobin 31.1 pg (26-34); Mean Corpuscular Volume 94.5 fl (80-100); Mean Platelet Volume 11.2 fl (7.4-10.4); Monocytes Absolute Auto 0.9 K/mm3 (0.1-0.6); Monocytes Percent Auto 16.5 % (2.6-8.5); Neutrophils Absolute Auto 3.1 K/mm3 (1.3-6.7); Neutrophils Percent Auto 60.4 % (45.5-73.1); Platelet Count Result 107 k/mm3 (150-375); Red Blood Count 4.57 M/mm3 (4.6-6.20); Red Cell Distribution Width 13.1 % (11.5-14.5); White Blood Count 5.2 K/mm3 (4.5-10.0)
[2022-05-18 06:33] LABS: Alanine Aminotransferase 48 U/L (6-50); Albumin Level 3.8 g/dL (3.5-5.1); Alkaline Phosphatase 36 U/L (38-126); Anion Gap 4 mmol/L (8-16); Aspartate Amino Transferase 39 U/L (17-59); Bilirubin,Total 0.6 mg/dL (0.2-1.3); Blood Urea Nitrogen 33 mg/dL (9-20); Calcium 8.2 mg/dL (8.4-10.2); Carbon Dioxide 30 mmol/L (22-30); Chloride 102 mmol/L (98-107); Cholesterol 125 mg/dL (0-200); Estimated CRCL calculation 66 ml/min; Estimated Glomerular Filt Rate > 60; Glucose 107 mg/dL (65-110); HDL Direct 26 mg/dL; Potassium 3.9 mmol/L (3.4-5.0); Sodium 136 mmol/L (137-145); Triglycerides 136 mg/dL (<150)
[2022-05-18 06:43] LABS: LDL Cholesterol Direct 71 mg/dL
[2022-05-18] MEDS: ceFAZolin 1 GM/NS 50 ML 1 GM/50 ML BAG IVPB ×2 (08:19→22:12)
[2022-05-18] MEDS: TAMSULOSIN HCL 0.4 MG CAPSULE PO (08:21)
[2022-05-18] MEDS: lisinopriL 5 MG TABLET PO (08:21)
[2022-05-18] MEDS: DULoxetine HCL 30 MG CAPSULE.DR PO ×2 (08:21→17:25)
[2022-05-18] MEDS: GABAPENTIN 300 MG CAPSULE PO (08:21)
[2022-05-18] MEDS: allopurinoL 300 MG TABLET PO (08:21)
[2022-05-18] MEDS: OMEGA 3 POLYUNSAT FATTY ACIDS 1 GM CAP PO ×2 (08:21→17:25)
[2022-05-18] MEDS: MULTIVITAMINS THERAPEUTIC TAB (*BKC) 1 TABLET PO (08:21)
[2022-05-18] MEDS: FAMOTIDINE 20 MG TABLET PO ×2 (08:21→20:46)
[2022-05-18] MEDS: FUROSEMIDE 40 MG TABLET PO (08:21)
[2022-05-18] MEDS: VITAMIN E 1,000 UNIT CAPSULE 1000 UNIT PO ×2 (08:21→17:25)
[2022-05-18] MEDS: modafiniL (*CRX) 100 MG TABLET PO (08:26)
[2022-05-18] MEDS: DOXYCYCLINE 100 MG/NS 100 ML 100 MG/100 ML BAG IVPB ×2 (10:00→20:48)
--- NOTE | 2022-05-18 13:01 | PM.IMPN ---
Progress Note: A&P Assessment and Plan (1) Cellulitis: Code(s): L03.90 - Cellulitis, unspecified Status: Inactive Assessment and Plan: Will get Doppler of lower extremity Give IV antibiotic Elevate left leg Neurovascular check IV antibiotics Follow culture results 05/18/2022 interval history: 77-year-old male presented with redness, swelling, and painful left lower extremity patient states he had been bumped his leg againts things and developed scab resulting in cellulitis, patient was started on cefazolin and added doxycycline, the nasal swab to rule out MRSA pending, one bottole of blood culure is growing Gram positive cocci, will follow-up on blood cultures further recommendation to follow, patient with history of atrial fib upon arrival the rate was slow seen by cardiology recommended to hold metoprolol unless he goes into tachycardia, his HR is 80 today, will continue to monitor, will have a PT OT evaluate the patient and further recommendation to follow (2) Hypotension: Code(s): I95.9 - Hypotension, unspecified Status: Inactive Assessment and Plan: Most likely related to dehydration give IV fluid monitor closely as patient has history of CHF (3) Rheumatoid arthritis: Qualifiers: Rheumatoid arthritis location: unspecified site Rheumatoid factor presence: unspecified presence Qualified Code(s): M06.9 - Rheumatoid arthritis, unspecified Code(s): M06.9 - Rheumatoid arthritis, unspecified Status: Acute Assessment and Plan: Stable continue to monitor (4) CAD (coronary artery disease): Code(s): I25.10 - Atherosclerotic heart disease of [place] coronary artery without angina pectoris Status: Acute Assessment and Plan: Patient on Plavix and beta-alejandro resume once medication confirm (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: Code(s): G47.419 - Narcolepsy without cataplexy Status: Acute Assessment and Plan: Continue to monitor continue home medication (6) PVD (peripheral vascular disease): Code(s): I73.9 - Peripheral vascular disease, unspecified Status: Acute Assessment and Plan: On Plavix continue home medication pending home medication reconciliation (7) Obstructive sleep apnea (adult) (pediatric): Code(s): G47.33 - Obstructive sleep apnea (adult) (pediatric) Status: Acute Assessment and Plan: Continue home medication (8) Nonrheumatic aortic valve disorder, unspecified: Code(s): I35.9 - Nonrheumatic aortic valve disorder, unspecified Status: Acute Assessment and Plan: Follow-up with PCP (9) Mixed hyperlipidemia: Code(s): E78.2 - Mixed hyperlipidemia Status: Acute Assessment and Plan: Resume statin (10) Gastro-esophageal reflux disease without esophagitis: Code(s): K21.9 - Gastro-esophageal reflux disease without esophagitis Status: Acute Assessment and Plan: Pepcid (11) Cardiomyopathy as manifestation of underlying disease: Code(s): I43 - Cardiomyopathy in diseases classified elsewhere Status: Acute Assessment and Plan: Avoid fluid overload (12) LOWELL (acute kidney injury): Code(s): N17.9 - Acute kidney failure, unspecified Status: Acute Assessment and Plan: Acute on top of chronic renal failure stage 3 avoid nephrotoxic medication give IV fluid most likely related to dehydration (13) Afib: Code(s): I48.91 - Unspecified atrial fibrillation Status: Acute Assessment and Plan: Patient on beta-alejandro and Xarelto pending home medication reconciliation A.m. team to follow (14) Bradycardia: Code(s): R00.1 - Bradycardia, unspecified Status: Acute Assessment and Plan: Patient had episodes of bradycardia heart rate around between 46-55 according to the patient his heart rate normally runs in 60s Monitor closely Telemetry Cardiology consult
[2022-05-18] MEDS: CLOPIDOGREL BISULFATE 75 MG TABLET PO (17:25)
[2022-05-18] MEDS: RIVAROXABAN 15 MG TABLET PO (17:25)
[2022-05-18] MEDS: TRIAMCINOLONE ACET 0.1% CREAM 80 GM TUBE 1 APPLIC TOPICAL (19:17)
[2022-05-18] MEDS: EZETIMIBE 10 MG TABLET PO (20:46)
[2022-05-18] MEDS: FENOFIBRATE 160 MG TABLET PO (20:47)
[2022-05-18] MEDS: GABAPENTIN 300 MG CAPSULE 600 MG PO (20:47)
[2022-05-19] VITALS (12 sets, daily range): BP systolic 114–178; BP diastolic 68–94; PULSE 52–80; RESP 13–19; TEMP 36.1–36.6; O2SAT 94–100
[2022-05-19 06:41] LABS: Basophils Percent Auto 0.4 % (0.2-1.2); Eosinophils Absolute Auto 0.3 K/mm3 (0-0.3); Hematocrit 47.7 % (42.0-52.0); Immature Granulocyte Absolute 0.03 K/mm3 (0.00-0.031); Immature Granulocyte Percent A 0.6 % (0-0.5); Immature Platelet Fraction Pct 5.1 % (0.9-11.2); Lymphocytes Absolute Auto 0.82 K/mm3 (0.9-3.2); Lymphocytes Percent Auto 16.9 % (18.3-44.2); Mean Corpuscular HGB Conc 33.5 g/dl (32-36); Mean Corpuscular Hemoglobin 31.7 pg (26-34); Mean Corpuscular Volume 94.5 fl (80-100); Mean Platelet Volume 10.8 fl (7.4-10.4); Monocytes Absolute Auto 0.6 K/mm3 (0.1-0.6); Monocytes Percent Auto 12.4 % (2.6-8.5); Neutrophils Absolute Auto 3.1 K/mm3 (1.3-6.7); Neutrophils Percent Auto 63.7 % (45.5-73.1); Platelet Count Result 133 k/mm3 (150-375); Red Blood Count 5.05 M/mm3 (4.6-6.20); Red Cell Distribution Width 13.1 % (11.5-14.5); White Blood Count 4.9 K/mm3 (4.5-10.0)
[2022-05-19 06:47] LABS: Alanine Aminotransferase 45 U/L (6-50); Albumin Level 4.4 g/dL (3.5-5.1); Alkaline Phosphatase 36 U/L (38-126); Anion Gap 4 mmol/L (8-16); Aspartate Amino Transferase 48 U/L (17-59); Bilirubin,Total 0.8 mg/dL (0.2-1.3); Blood Urea Nitrogen 23 mg/dL (9-20); Calcium 8.5 mg/dL (8.4-10.2); Carbon Dioxide 31 mmol/L (22-30); Chloride 102 mmol/L (98-107); Estimated CRCL calculation 80 ml/min; Estimated Glomerular Filt Rate > 60; Glucose 112 mg/dL (65-110); Potassium 4.4 mmol/L (3.4-5.0); Sodium 137 mmol/L (137-145)
[2022-05-19] MEDS: ceFAZolin 1 GM/NS 50 ML 1 GM/50 ML BAG IVPB ×2 (09:13→21:37)
[2022-05-19] MEDS: HYDROcodone/acetaminophen (*CRX) 5-325 MG TABLET 1 TAB PO ×2 (09:15→20:29)
[2022-05-19] MEDS: MULTIVITAMINS THERAPEUTIC TAB (*BKC) 1 TABLET PO (09:16)
[2022-05-19] MEDS: VITAMIN E 1,000 UNIT CAPSULE 1000 UNIT PO ×2 (09:16→17:31)
[2022-05-19] MEDS: OMEGA 3 POLYUNSAT FATTY ACIDS 1 GM CAP PO ×2 (09:16→17:31)
[2022-05-19] MEDS: TAMSULOSIN HCL 0.4 MG CAPSULE PO (09:16)
[2022-05-19] MEDS: allopurinoL 300 MG TABLET PO (09:16)
[2022-05-19] MEDS: DULoxetine HCL 30 MG CAPSULE.DR PO ×2 (09:16→17:31)
[2022-05-19] MEDS: FUROSEMIDE 40 MG TABLET PO (09:16)
[2022-05-19] MEDS: FAMOTIDINE 20 MG TABLET PO ×2 (09:16→20:24)
[2022-05-19] MEDS: lisinopriL 5 MG TABLET PO (09:16)
[2022-05-19] MEDS: TRIAMCINOLONE ACET 0.1% CREAM 80 GM TUBE 1 APPLIC TOPICAL ×2 (09:17→20:23)
[2022-05-19] MEDS: GABAPENTIN 300 MG CAPSULE PO (09:17)
[2022-05-19] MEDS: modafiniL (*CRX) 100 MG TABLET PO (09:18)
[2022-05-19] MEDS: DOXYCYCLINE 100 MG/NS 100 ML 100 MG/100 ML BAG IVPB ×2 (09:53→20:26)
--- NOTE | 2022-05-19 13:47 | PM.IMPN ---
Progress Note: A&P Assessment and Plan (1) Cellulitis: Code(s): L03.90 - Cellulitis, unspecified Status: Inactive Assessment and Plan: Will get Doppler of lower extremity Give IV antibiotic Elevate left leg Neurovascular check IV antibiotics Follow culture results 05/19/2022 interval history: 77-year-old male presented with redness, swelling, and painful left lower extremity patient states he had been bumped his leg against things and developed scab resulting in cellulitis, patient was started on cefazolin and added doxycycline, the nasal swab to rule out MRSA is negative, one bottle of blood culure is growing Staphylococcus capitis will follow-up on blood cultures for sensitivity, erythema still persist further recommendation to follow, patient with history of atrial fib upon arrival the rate was slow seen by cardiology recommended to hold metoprolol unless he goes into tachycardia, his HR is 70 today, will continue to monitor, will have a PT OT evaluate the patient and further recommendation to follow. (2) Hypotension: Code(s): I95.9 - Hypotension, unspecified Status: Inactive Assessment and Plan: Most likely related to dehydration give IV fluid monitor closely as patient has history of CHF (3) Rheumatoid arthritis: Qualifiers: Rheumatoid arthritis location: unspecified site Rheumatoid factor presence: unspecified presence Qualified Code(s): M06.9 - Rheumatoid arthritis, unspecified Code(s): M06.9 - Rheumatoid arthritis, unspecified Status: Acute Assessment and Plan: Stable continue to monitor (4) CAD (coronary artery disease): Code(s): I25.10 - Atherosclerotic heart disease of [place] coronary artery without angina pectoris Status: Acute Assessment and Plan: Patient on Plavix and beta-alejandro resume once medication confirm (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: Code(s): G47.419 - Narcolepsy without cataplexy Status: Acute Assessment and Plan: Continue to monitor continue home medication (6) PVD (peripheral vascular disease): Code(s): I73.9 - Peripheral vascular disease, unspecified Status: Acute Assessment and Plan: On Plavix continue home medication pending home medication reconciliation (7) Obstructive sleep apnea (adult) (pediatric): Code(s): G47.33 - Obstructive sleep apnea (adult) (pediatric) Status: Acute Assessment and Plan: Continue home medication (8) Nonrheumatic aortic valve disorder, unspecified: Code(s): I35.9 - Nonrheumatic aortic valve disorder, unspecified Status: Acute Assessment and Plan: Follow-up with PCP (9) Mixed hyperlipidemia: Code(s): E78.2 - Mixed hyperlipidemia Status: Acute Assessment and Plan: Resume statin (10) Gastro-esophageal reflux disease without esophagitis: Code(s): K21.9 - Gastro-esophageal reflux disease without esophagitis Status: Acute Assessment and Plan: Pepcid (11) Cardiomyopathy as manifestation of underlying disease: Code(s): I43 - Cardiomyopathy in diseases classified elsewhere Status: Acute Assessment and Plan: Avoid fluid overload (12) LOWELL (acute kidney injury): Code(s): N17.9 - Acute kidney failure, unspecified Status: Acute Assessment and Plan: Acute on top of chronic renal failure stage 3 avoid nephrotoxic medication give IV fluid most likely related to dehydration (13) Afib: Code(s): I48.91 - Unspecified atrial fibrillation Status: Acute Assessment and Plan: Patient on beta-alejandro and Xarelto pending home medication reconciliation A.m. team to follow (14) Bradycardia: Code(s): R00.1 - Bradycardia, unspecified Status: Acute Assessment and Plan: Patient had episodes of bradycardia heart rate around between 46-55 according to the patient his heart rate normally runs in 6
[2022-05-19] MEDS: RIVAROXABAN 15 MG TABLET PO (17:31)
[2022-05-19] MEDS: CLOPIDOGREL BISULFATE 75 MG TABLET PO (17:31)
[2022-05-19] MEDS: SODIUM CHLORIDE 0.9% IV 1,000 ML 100 ML IV CONT (17:31)
[2022-05-19] MEDS: EZETIMIBE 10 MG TABLET PO (20:23)
[2022-05-19] MEDS: GABAPENTIN 300 MG CAPSULE 600 MG PO (20:25)
[2022-05-19] MEDS: FENOFIBRATE 160 MG TABLET PO (20:27)
[2022-05-20] VITALS (11 sets, daily range): BP systolic 130–158; BP diastolic 60–79; PULSE 47–87; RESP 13–18; TEMP 36.1–36.3; O2SAT 96–100
[2022-05-20] MEDS: SODIUM CHLORIDE 0.9% IV 1,000 ML 100 ML IV CONT ×2 (05:47→19:46)
[2022-05-20 06:11] LABS: Hematocrit 43.8 % (42.0-52.0); Hemoglobin 14.5 g/dL (14.0-18.0); Mean Corpuscular HGB Conc 33.1 g/dl (32-36); Mean Corpuscular Hemoglobin 31.2 pg (26-34); Mean Corpuscular Volume 94.2 fl (80-100); Mean Platelet Volume 10.6 fl (7.4-10.4); Platelet Count Result 120 k/mm3 (150-375); Red Blood Count 4.65 M/mm3 (4.6-6.20); Red Cell Distribution Width 13.1 % (11.5-14.5); White Blood Count 3.9 K/mm3 (4.5-10.0)
[2022-05-20 06:20] LABS: Anion Gap 0 mmol/L (8-16); Blood Urea Nitrogen 21 mg/dL (9-20); Calcium 8.3 mg/dL (8.4-10.2); Carbon Dioxide 31 mmol/L (22-30); Chloride 104 mmol/L (98-107); Estimated CRCL calculation 80 ml/min; Estimated Glomerular Filt Rate > 60; Glucose 101 mg/dL (65-110); Magnesium 1.9 mg/dL (1.6-2.3); Potassium 3.9 mmol/L (3.4-5.0); Sodium 135 mmol/L (137-145)
[2022-05-20] MEDS: ceFAZolin 1 GM/NS 50 ML 1 GM/50 ML BAG IVPB ×2 (09:03→21:20)
[2022-05-20] MEDS: HYDROcodone/acetaminophen (*CRX) 5-325 MG TABLET 1 TAB PO ×2 (09:03→21:29)
[2022-05-20] MEDS: FAMOTIDINE 20 MG TABLET PO ×2 (09:04→21:25)
[2022-05-20] MEDS: TAMSULOSIN HCL 0.4 MG CAPSULE PO (09:04)
[2022-05-20] MEDS: MULTIVITAMINS THERAPEUTIC TAB (*BKC) 1 TABLET PO (09:04)
[2022-05-20] MEDS: FUROSEMIDE 40 MG TABLET PO (09:04)
[2022-05-20] MEDS: OMEGA 3 POLYUNSAT FATTY ACIDS 1 GM CAP PO ×2 (09:04→17:29)
[2022-05-20] MEDS: GABAPENTIN 300 MG CAPSULE PO (09:04)
[2022-05-20] MEDS: TRIAMCINOLONE ACET 0.1% CREAM 80 GM TUBE 1 APPLIC TOPICAL ×2 (09:04→22:11)
[2022-05-20] MEDS: lisinopriL 5 MG TABLET PO (09:04)
[2022-05-20] MEDS: modafiniL (*CRX) 100 MG TABLET PO (09:04)
[2022-05-20] MEDS: DULoxetine HCL 30 MG CAPSULE.DR PO ×2 (09:04→17:29)
[2022-05-20] MEDS: VITAMIN E 1,000 UNIT CAPSULE 1000 UNIT PO ×2 (09:04→17:29)
[2022-05-20] MEDS: allopurinoL 300 MG TABLET PO (09:04)
[2022-05-20] MEDS: DOXYCYCLINE 100 MG/NS 100 ML 100 MG/100 ML BAG IVPB ×2 (09:39→22:11)
--- NOTE | 2022-05-20 12:04 | PM.IMPN ---
Progress Note: A&P Assessment and Plan (1) Cellulitis: Code(s): L03.90 - Cellulitis, unspecified Status: Inactive Assessment and Plan: Will get Doppler of lower extremity Give IV antibiotic Elevate left leg Neurovascular check IV antibiotics Follow culture results 05/20/2022 interval history: 77-year-old male presented with redness, swelling, and painful left lower extremity patient states he had been bumped his leg against things and developed scab resulting in cellulitis, patient was started on cefazolin and added doxycycline, the nasal swab to rule out MRSA is negative, one bottle of blood culture is growing Staphylococcus capitis zhu sansitive,Will repeat the blood culture, there is significant improvement in erythema and pain, will continue to reassess and follow-up on repeat blood culture, further recommendation to follow, patient with history of atrial fib upon arrival the rate was slow seen by cardiology recommended to hold metoprolol unless he goes into tachycardia, his HR is 70 today, patient's is present in the room and gave update, will continue to monitor, will have a PT OT evaluate the patient and further recommendation to follow. (2) Hypotension: Code(s): I95.9 - Hypotension, unspecified Status: Inactive Assessment and Plan: Most likely related to dehydration give IV fluid monitor closely as patient has history of CHF (3) Rheumatoid arthritis: Qualifiers: Rheumatoid arthritis location: unspecified site Rheumatoid factor presence: unspecified presence Qualified Code(s): M06.9 - Rheumatoid arthritis, unspecified Code(s): M06.9 - Rheumatoid arthritis, unspecified Status: Acute Assessment and Plan: Stable continue to monitor (4) CAD (coronary artery disease): Code(s): I25.10 - Atherosclerotic heart disease of [place] coronary artery without angina pectoris Status: Acute Assessment and Plan: Patient on Plavix and beta-alejandro resume once medication confirm (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: Code(s): G47.419 - Narcolepsy without cataplexy Status: Acute Assessment and Plan: Continue to monitor continue home medication (6) PVD (peripheral vascular disease): Code(s): I73.9 - Peripheral vascular disease, unspecified Status: Acute Assessment and Plan: On Plavix continue home medication pending home medication reconciliation (7) Obstructive sleep apnea (adult) (pediatric): Code(s): G47.33 - Obstructive sleep apnea (adult) (pediatric) Status: Acute Assessment and Plan: Continue home medication (8) Nonrheumatic aortic valve disorder, unspecified: Code(s): I35.9 - Nonrheumatic aortic valve disorder, unspecified Status: Acute Assessment and Plan: Follow-up with PCP (9) Mixed hyperlipidemia: Code(s): E78.2 - Mixed hyperlipidemia Status: Acute Assessment and Plan: Resume statin (10) Gastro-esophageal reflux disease without esophagitis: Code(s): K21.9 - Gastro-esophageal reflux disease without esophagitis Status: Acute Assessment and Plan: Pepcid (11) Cardiomyopathy as manifestation of underlying disease: Code(s): I43 - Cardiomyopathy in diseases classified elsewhere Status: Acute Assessment and Plan: Avoid fluid overload (12) LOWELL (acute kidney injury): Code(s): N17.9 - Acute kidney failure, unspecified Status: Acute Assessment and Plan: Acute on top of chronic renal failure stage 3 avoid nephrotoxic medication give IV fluid most likely related to dehydration (13) Afib: Code(s): I48.91 - Unspecified atrial fibrillation Status: Acute Assessment and Plan: Patient on beta-alejandro and Xarelto pending home medication reconciliation A.m. team to follow (14) Bradycardia: Code(s): R00.1 - Bradycardia, unspecified Status: Acute As
[2022-05-20] MEDS: CLOPIDOGREL BISULFATE 75 MG TABLET PO (17:29)
[2022-05-20] MEDS: RIVAROXABAN 15 MG TABLET PO (17:29)
[2022-05-20] MEDS: FENOFIBRATE 160 MG TABLET PO (21:25)
[2022-05-20] MEDS: GABAPENTIN 300 MG CAPSULE 600 MG PO (21:25)
[2022-05-20] MEDS: EZETIMIBE 10 MG TABLET PO (21:25)
[2022-05-21] VITALS (11 sets, daily range): BP systolic 116–156; BP diastolic 51–75; PULSE 48–111; RESP 13–18; TEMP 36.1–36.4; O2SAT 96–100
[2022-05-21] MEDS: SODIUM CHLORIDE 0.9% IV 1,000 ML 100 ML IV CONT ×2 (07:17→20:04)
[2022-05-21 07:21] LABS: Hematocrit 43.2 % (42.0-52.0); Hemoglobin 14.6 g/dL (14.0-18.0); Mean Corpuscular HGB Conc 33.8 g/dl (32-36); Mean Corpuscular Hemoglobin 31.8 pg (26-34); Mean Corpuscular Volume 94.1 fl (80-100); Mean Platelet Volume 10.8 fl (7.4-10.4); Platelet Count Result 127 k/mm3 (150-375); Red Blood Count 4.59 M/mm3 (4.6-6.20); Red Cell Distribution Width 13.2 % (11.5-14.5)
[2022-05-21 07:37] LABS: Anion Gap 6 mmol/L (8-16); Blood Urea Nitrogen 21 mg/dL (9-20); Calcium 8.2 mg/dL (8.4-10.2); Carbon Dioxide 29 mmol/L (22-30); Chloride 106 mmol/L (98-107); Estimated CRCL calculation 72 ml/min; Estimated Glomerular Filt Rate > 60; Glucose 104 mg/dL (65-110); Magnesium 1.8 mg/dL (1.6-2.3); Potassium 4.1 mmol/L (3.4-5.0); Sodium 141 mmol/L (137-145)
[2022-05-21] MEDS: ceFAZolin 1 GM/NS 50 ML 1 GM/50 ML BAG IVPB (08:51)
[2022-05-21] MEDS: WATER FOR IRRIGATION, STERILE 1,000 ML BOTTLE 1000 ML (08:55)
[2022-05-21] MEDS: TAMSULOSIN HCL 0.4 MG CAPSULE PO (08:55)
[2022-05-21] MEDS: OMEGA 3 POLYUNSAT FATTY ACIDS 1 GM CAP PO ×2 (08:55→17:18)
[2022-05-21] MEDS: GABAPENTIN 300 MG CAPSULE PO (08:55)
[2022-05-21] MEDS: lisinopriL 5 MG TABLET PO (08:56)
[2022-05-21] MEDS: DULoxetine HCL 30 MG CAPSULE.DR PO ×2 (08:56→17:18)
[2022-05-21] MEDS: allopurinoL 300 MG TABLET PO (08:56)
[2022-05-21] MEDS: FAMOTIDINE 20 MG TABLET PO ×2 (08:56→20:05)
[2022-05-21] MEDS: FUROSEMIDE 40 MG TABLET PO (08:56)
[2022-05-21] MEDS: VITAMIN E 1,000 UNIT CAPSULE 1000 UNIT PO ×2 (08:56→17:20)
[2022-05-21] MEDS: MULTIVITAMINS THERAPEUTIC TAB (*BKC) 1 TABLET PO (08:56)
[2022-05-21] MEDS: TRIAMCINOLONE ACET 0.1% CREAM 80 GM TUBE 1 APPLIC TOPICAL ×2 (08:58→20:05)
[2022-05-21] MEDS: modafiniL (*CRX) 100 MG TABLET PO (09:02)
[2022-05-21] MEDS: DOXYCYCLINE 100 MG/NS 100 ML 100 MG/100 ML BAG IVPB (09:52)
--- NOTE | 2022-05-21 11:27 | PM.IMPN ---
Progress Note: A&P Assessment and Plan (1) Cellulitis: Code(s): L03.90 - Cellulitis, unspecified Status: Inactive Assessment and Plan: Will get Doppler of lower extremity Give IV antibiotic Elevate left leg Neurovascular check IV antibiotics Follow culture results 05/21/2022 interval history: 77-year-old male presented with redness, swelling, and painful left lower extremity patient states he had been bumped his leg against things and developed scab resulting in cellulitis, patient was started on cefazolin and added doxycycline, the nasal swab to rule out MRSA is negative, one bottle of blood culture is growing Staphylococcus capitis zhu sansitive,Will repeat the blood culture no growth so far, there is significant improvement in erythema and pain, will continue to reassess and follow-up on repeat blood culture,tomorrow and possibly discharge, further recommendation to follow, patient with history of atrial fib upon arrival the rate was slow seen by cardiology recommended to hold metoprolol unless he goes into tachycardia, his HR is 66 today, patient's is present in the room and gave update, will continue to monitor, will have a PT OT evaluate the patient and further recommendation to follow. (2) Hypotension: Code(s): I95.9 - Hypotension, unspecified Status: Inactive Assessment and Plan: Most likely related to dehydration give IV fluid monitor closely as patient has history of CHF (3) Rheumatoid arthritis: Qualifiers: Rheumatoid arthritis location: unspecified site Rheumatoid factor presence: unspecified presence Qualified Code(s): M06.9 - Rheumatoid arthritis, unspecified Code(s): M06.9 - Rheumatoid arthritis, unspecified Status: Acute Assessment and Plan: Stable continue to monitor (4) CAD (coronary artery disease): Code(s): I25.10 - Atherosclerotic heart disease of [place] coronary artery without angina pectoris Status: Acute Assessment and Plan: Patient on Plavix and beta-alejandro resume once medication confirm (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: Code(s): G47.419 - Narcolepsy without cataplexy Status: Acute Assessment and Plan: Continue to monitor continue home medication (6) PVD (peripheral vascular disease): Code(s): I73.9 - Peripheral vascular disease, unspecified Status: Acute Assessment and Plan: On Plavix continue home medication pending home medication reconciliation (7) Obstructive sleep apnea (adult) (pediatric): Code(s): G47.33 - Obstructive sleep apnea (adult) (pediatric) Status: Acute Assessment and Plan: Continue home medication (8) Nonrheumatic aortic valve disorder, unspecified: Code(s): I35.9 - Nonrheumatic aortic valve disorder, unspecified Status: Acute Assessment and Plan: Follow-up with PCP (9) Mixed hyperlipidemia: Code(s): E78.2 - Mixed hyperlipidemia Status: Acute Assessment and Plan: Resume statin (10) Gastro-esophageal reflux disease without esophagitis: Code(s): K21.9 - Gastro-esophageal reflux disease without esophagitis Status: Acute Assessment and Plan: Pepcid (11) Cardiomyopathy as manifestation of underlying disease: Code(s): I43 - Cardiomyopathy in diseases classified elsewhere Status: Acute Assessment and Plan: Avoid fluid overload (12) LOWELL (acute kidney injury): Code(s): N17.9 - Acute kidney failure, unspecified Status: Acute Assessment and Plan: Acute on top of chronic renal failure stage 3 avoid nephrotoxic medication give IV fluid most likely related to dehydration (13) Afib: Code(s): I48.91 - Unspecified atrial fibrillation Status: Acute Assessment and Plan: Patient on beta-alejandro and Xarelto pending home medication reconciliation A.m. team to follow (14) Bradycardia: Code(s): R00.1 - Br
[2022-05-21] MEDS: CEPHALEXIN 500 MG CAPSULE PO ×2 (17:20→23:19)
[2022-05-21] MEDS: RIVAROXABAN 15 MG TABLET PO (17:20)
[2022-05-21] MEDS: CLOPIDOGREL BISULFATE 75 MG TABLET PO (17:21)
[2022-05-21] MEDS: GABAPENTIN 300 MG CAPSULE 600 MG PO (20:05)
[2022-05-21] MEDS: DOXYCYCLINE HYCLATE 100 MG TABLET PO (20:06)
[2022-05-21] MEDS: EZETIMIBE 10 MG TABLET PO (20:06)
[2022-05-21] MEDS: FENOFIBRATE 160 MG TABLET PO (20:07)
[2022-05-22] VITALS: PULSE 53
[2022-05-22 02:32] VITALS: PULSE 72; RESP 14; O2SAT 95
[2022-05-22 04:00] VITALS: PULSE 50
[2022-05-22] MEDS: CEPHALEXIN 500 MG CAPSULE PO (05:19)
[2022-05-22 05:49] VITALS: BP 161/68; PULSE 44; RESP 14; TEMP 36.1; O2SAT 100
[2022-05-22 06:11] LABS: Hematocrit 40.6 % (42.0-52.0); Hemoglobin 13.5 g/dL (14.0-18.0); Immature Platelet Fraction Pct 4.1 % (0.9-11.2); Mean Corpuscular HGB Conc 33.3 g/dl (32-36); Mean Corpuscular Hemoglobin 30.6 pg (26-34); Mean Corpuscular Volume 92.1 fl (80-100); Mean Platelet Volume 10.8 fl (7.4-10.4); Platelet Count Result 120 k/mm3 (150-375); Red Blood Count 4.41 M/mm3 (4.6-6.20); Red Cell Distribution Width 12.8 % (11.5-14.5); White Blood Count 4.2 K/mm3 (4.5-10.0)
[2022-05-22 06:15] LABS: Anion Gap 2 mmol/L (8-16); Blood Urea Nitrogen 23 mg/dL (9-20); Calcium 8.3 mg/dL (8.4-10.2); Carbon Dioxide 27 mmol/L (22-30); Chloride 105 mmol/L (98-107); Estimated CRCL calculation 80 ml/min; Estimated Glomerular Filt Rate > 60; Glucose 97 mg/dL (65-110); Magnesium 1.8 mg/dL (1.6-2.3); Potassium 3.8 mmol/L (3.4-5.0); Sodium 134 mmol/L (137-145)
[2022-05-22 08:00] VITALS: PULSE 60
[2022-05-22] MEDS: DULoxetine HCL 30 MG CAPSULE.DR PO (08:10)
[2022-05-22] MEDS: GABAPENTIN 300 MG CAPSULE PO (08:10)
[2022-05-22] MEDS: allopurinoL 300 MG TABLET PO (08:10)
[2022-05-22] MEDS: MULTIVITAMINS THERAPEUTIC TAB (*BKC) 1 TABLET PO (08:10)
[2022-05-22] MEDS: VITAMIN E 1,000 UNIT CAPSULE 1000 UNIT PO (08:10)
[2022-05-22] MEDS: FUROSEMIDE 40 MG TABLET PO (08:10)
[2022-05-22] MEDS: TAMSULOSIN HCL 0.4 MG CAPSULE PO (08:10)
[2022-05-22] MEDS: DOXYCYCLINE HYCLATE 100 MG TABLET PO (08:10)
[2022-05-22] MEDS: SODIUM CHLORIDE 0.9% IV 1,000 ML 100 ML IV CONT (08:11)
[2022-05-22] MEDS: FAMOTIDINE 20 MG TABLET PO (08:11)
[2022-05-22] MEDS: lisinopriL 5 MG TABLET PO (08:11)
[2022-05-22] MEDS: TRIAMCINOLONE ACET 0.1% CREAM 80 GM TUBE 1 APPLIC TOPICAL (08:11)
[2022-05-22] MEDS: modafiniL (*CRX) 100 MG TABLET PO (08:14)
[2022-05-22] MEDS: OMEGA 3 POLYUNSAT FATTY ACIDS 1 GM CAP PO (08:14)
--- NOTE | 2022-05-22 08:52 | PM.DS ---
DS: Admitting Diagnosis Discharge Date 05/22/2022 Admitting Diagnosis Leg pain DS: Discharge Diagnosis Discharge Diagnosis (1) Cellulitis: Code(s): L03.90 - Cellulitis, unspecified Status: Inactive Assessment and Plan: Will get Doppler of lower extremity Give IV antibiotic Elevate left leg Neurovascular check IV antibiotics Follow culture results 05/21/2022 interval history: 77-year-old male presented with redness, swelling, and painful left lower extremity patient states he had been bumped his leg against things and developed scab resulting in cellulitis, patient was started on cefazolin and added doxycycline, the nasal swab to rule out MRSA is negative, one bottle of blood culture is growing Staphylococcus capitis zhu sansitive,Will repeat the blood culture no growth so far, there is significant improvement in erythema and pain, will continue to reassess and follow-up on repeat blood culture,tomorrow and possibly discharge, further recommendation to follow, patient with history of atrial fib upon arrival the rate was slow seen by cardiology recommended to hold metoprolol unless he goes into tachycardia, his HR is 66 today, patient's is present in the room and gave update, will continue to monitor, will have a PT OT evaluate the patient and further recommendation to follow. (2) Hypotension: Code(s): I95.9 - Hypotension, unspecified Status: Inactive Assessment and Plan: Most likely related to dehydration give IV fluid monitor closely as patient has history of CHF (3) Rheumatoid arthritis: Qualifiers: Rheumatoid arthritis location: unspecified site Rheumatoid factor presence: unspecified presence Qualified Code(s): M06.9 - Rheumatoid arthritis, unspecified Code(s): M06.9 - Rheumatoid arthritis, unspecified Status: Acute Assessment and Plan: Stable continue to monitor (4) CAD (coronary artery disease): Code(s): I25.10 - Atherosclerotic heart disease of [place] coronary artery without angina pectoris Status: Acute Assessment and Plan: Patient on Plavix and beta-alejandro resume once medication confirm (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: Code(s): G47.419 - Narcolepsy without cataplexy Status: Acute Assessment and Plan: Continue to monitor continue home medication (6) PVD (peripheral vascular disease): Code(s): I73.9 - Peripheral vascular disease, unspecified Status: Acute Assessment and Plan: On Plavix continue home medication pending home medication reconciliation (7) Obstructive sleep apnea (adult) (pediatric): Code(s): G47.33 - Obstructive sleep apnea (adult) (pediatric) Status: Acute Assessment and Plan: Continue home medication (8) Nonrheumatic aortic valve disorder, unspecified: Code(s): I35.9 - Nonrheumatic aortic valve disorder, unspecified Status: Acute Assessment and Plan: Follow-up with PCP (9) Mixed hyperlipidemia: Code(s): E78.2 - Mixed hyperlipidemia Status: Acute Assessment and Plan: Resume statin (10) Gastro-esophageal reflux disease without esophagitis: Code(s): K21.9 - Gastro-esophageal reflux disease without esophagitis Status: Acute Assessment and Plan: Pepcid (11) Cardiomyopathy as manifestation of underlying disease: Code(s): I43 - Cardiomyopathy in diseases classified elsewhere Status: Acute Assessment and Plan: Avoid fluid overload (12) LOWELL (acute kidney injury): Code(s): N17.9 - Acute kidney failure, unspecified Status: Acute Assessment and Plan: Acute on top of chronic renal failure stage 3 avoid nephrotoxic medication give IV fluid most likely related to dehydration (13) Afib: Code(s): I48.91 - Unspecified atrial fibrillation Status: Acute Assessment and Plan: Patient on beta-alejandro and Xarelto pending home m
== END 2022-05-22 09:50 | disposition home or self-care (01) | DRG 603 ==
LOC: ANHED 21:59 → ANH3MEDSUR 22:48
PROVIDERS: Emergency Medicine; Internal Medicine Cardiovascular Disease; Admitting Provider Internal Medicine; Emergency Provider Emergency Medicine; PCP Family Medicine; Visit Provider Family Medicine
DX: L03.116 Cellulitis of left lower limb (principal); N17.9 Acute kidney failure, unspecified; I13.0 Hypertensive heart and chronic kidney disease with heart failure and stage 1 through stage 4 chronic kidney disease, or unspecified chronic kidney disease; I43 Cardiomyopathy in diseases classified elsewhere; I48.92 Unspecified atrial flutter; I48.19 Other persistent atrial fibrillation; B95.7 Other staphylococcus as the cause of diseases classified elsewhere; I50.9 Heart failure, unspecified; N18.30 Chronic kidney disease, stage 3 unspecified; I25.10 Atherosclerotic heart disease of native coronary artery without angina pectoris; G47.33 Obstructive sleep apnea (adult) (pediatric); E78.2 Mixed hyperlipidemia; R00.1 Bradycardia, unspecified; K21.9 Gastro-esophageal reflux disease without esophagitis; I73.9 Peripheral vascular disease, unspecified; E86.0 Dehydration; I25.5 Ischemic cardiomyopathy; M06.9 Rheumatoid arthritis, unspecified; I95.9 Hypotension, unspecified; G47.419 Narcolepsy without cataplexy; Z96.619 Presence of unspecified artificial shoulder joint; Z96.659 Presence of unspecified artificial knee joint; E66.9 Obesity, unspecified; Z68.37 Body mass index [BMI] 37.0-37.9, adult; Z95.2 Presence of prosthetic heart valve; Z95.1 Presence of aortocoronary bypass graft; Z79.01 Long term (current) use of anticoagulants; Z79.02 Long term (current) use of antithrombotics/antiplatelets
CPT/HCPCS: 36415; 36600; 73590; 80048; 80053; 80061; 82805; 82948; 83605; 83735; 84443; 84484; 85025; 85027; 85055; 85610; 85730; 86140; 87040; 87081; 87147; 87181; 87186; 93005; 93970; 93971; 94003; 96360; 96361; 96367; 96375; 96376; 99212; 99285; A9270; G0378; G0463; J0690; J2270; J7030

== ENCOUNTER 2022-06-19 15:36 | Emergency (ER) | payer MEDICARE, OTHER, SELFPAY ==
--- NOTE | 2022-06-19 15:41 | ED.SKABFB ---
HPI - Skin/Abscess/Foreign Bdy General Chief complaint: Skin/Abscess/Foreign Body Stated complaint: L LOWER LEG WOUND Time Seen by Provider: 06/19/22 15:42 Source: patient and RN notes reviewed History of Present Illness HPI narrative: Patient is a 77-year-old male who presents to Urgent Care with his spouse with complaints of cellulitis of the left lower leg. Patient was admitted to the hospital May 16 for left lower leg cellulitis and was discharged on the 22 of May. While in the hospital patient was on clindamycin and Keflex and then took 10 days of doxycycline after discharge. Patient states that he hits his lower legs a lot. Believes he ran into something either Saturday or Saturday night and noticed the redness and swelling to the left lower leg today. Patient has been putting the prescription ketoconazole cream on the wound. States he has been keeping it clean but has not necessarily been keeping it covered. Patient currently denies any fevers, nausea, vomiting, shortness of breath. Patient's venous Doppler was within normal limits at discharge from [facility] on the 22 of May. No other acute complaints. No acute distress noted. Patient and spouse aware of the plan of care. Some parts of this dictation were generated by voice recognition software and may contain typographical and/or grammatical inaccuracies. Related Data Home Medications Medication Instructions Recorded Confirmed clopidogrel 75 mg tablet (Plavix) 75 mg PO .DEYSI 03/27/19 06/19/22 duloxetine 30 mg capsule,delayed 30 mg PO BID 03/27/19 06/19/22 release metoprolol succinate 25 mg 25 mg PO DAILY 03/27/19 06/19/22 tablet,extended release 24 hr meclizine 25 mg tablet 25 mg PO TID PRN Vertigo 08/03/19 06/19/22 Men's Multi-Vitamin 1 tablet PO DAILY 05/16/22 06/19/22 furosemide 40 mg tablet 40 mg PO DAILY 05/16/22 06/19/22 gabapentin 300 mg capsule 600 mg PO HS 05/16/22 06/19/22 lisinopril 5 mg tablet 5 mg PO DAILY 05/16/22 06/19/22 omega-3 fatty acids-vitamin E 1 cap PO BID 05/16/22 06/19/22 1,000 mg capsule rivaroxaban 15 mg tablet (Xarelto) 15 mg PO DAILY 05/16/22 06/19/22 allopurinol 300 mg tablet 300 mg PO DAILY 05/17/22 06/19/22 ezetimibe 10 mg tablet 10 mg PO HS 05/17/22 06/19/22 gabapentin 300 mg capsule 300 mg PO DAILY 05/17/22 06/19/22 triamcinolone acetonide 0.1 % 1 applic topical BID 05/17/22 06/19/22 topical cream Allergies Allergy/AdvReac Type Severity Reaction Status Date / Time No Known Allergies Allergy Verified 06/19/22 15:49 Review of Systems Review of Systems: CONSTITUTIONAL: Denies fever, chills, or sweats. EYES: Denies visual changes, redness, or discharge. ENT: Denies rhinorrhea, congestion, sore throat, or otalgia. CARDIOVASCULAR: Denies chest pain, palpitations, or edema. RESPIRATORY: Denies cough or dyspnea. GASTROINTESTINAL: Denies abdominal pain, nausea, vomiting, or diarrhea. GENITOURINARY: Denies dysuria or hematuria. SKIN: Reports of open wound to the left lower leg MUSCULOSKELETAL: Reports of redness and swelling to the left lower leg NEUROLOGIC: Denies headache, numbness, or weakness. All other systems reviewed are negative, except as documented in HPI. REPLACED BY [facility] Past Medical History Medical History (Updated 06/19/22 @ 16:00 by OPAL Ho) BMI 37.0-37.9, adult CAD (coronary artery disease) Drooling Rheumatoid arthritis Tinea corporis Unspecified atrial fibrillation Surgical History Surgical History H/O aortic valve replacement H/O arthroscopy of knee H/O arthroscopy of shoulder H/O cardiac radiofrequency ablation H/O shoulder replacement History of knee replacement S/P CABG x 3 Family History Family History Grandparent Cerebrovascular accident Father Family history of malignant neoplasm Other No family history of cardiovascular disease No family history of nader
[2022-06-19 15:45] VITALS: BP 105/91; PULSE 53; RESP 16; TEMP 35.9; O2SAT 98
== END 2022-06-19 16:16 | disposition left against medical advice (07) ==
PROVIDERS: Emergency Provider Nurse Practitioner Family; PCP Family Medicine
DX: L03.116 Cellulitis of left lower limb (principal); I25.10 Atherosclerotic heart disease of native coronary artery without angina pectoris; M06.9 Rheumatoid arthritis, unspecified; I48.91 Unspecified atrial fibrillation; Z95.1 Presence of aortocoronary bypass graft
CPT/HCPCS: 99213; G0463

== ENCOUNTER 2022-09-13 07:54 | Outpatient (RCR) | payer MEDICARE, OTHER, SELFPAY ==
[2022-08-24 14:16] VITALS: BMI 36.5
== END 2022-10-25 12:54 | disposition home or self-care (01) ==
LOC: ANHWOC 07:54
PROVIDERS: PCP Family Medicine; Visit Provider Family Medicine
DX: L97.911 Non-pressure chronic ulcer of unspecified part of right lower leg limited to breakdown of skin (principal); L97.921 Non-pressure chronic ulcer of unspecified part of left lower leg limited to breakdown of skin
CPT/HCPCS: 99213; A9270; G0463

== ENCOUNTER → 2023-03-19 11:52 | Outpatient (CLI) | payer MEDICARE, OTHER, SELFPAY ==
--- NOTE | ~2023-03-19 | XR_ITS ---
Clinical Indication: Heart failure PA and lateral views of the chest: Comparison: 06/20/2017 Findings: The lungs are clear, without evidence of focal consolidation or pleural effusion. Cardiome diastinal silhouette is stable. Bilateral shoulder arthroplasties are partially imaged. Impression: Clear lungs. Stable cardiomegaly. Reviewed, dictated and finalized at location . US RECRUITER Impression: Clear lungs. Stable cardiomegaly.
== END ==
PROVIDERS: PCP Family Medicine; Visit Provider Family Medicine
DX: I50.9 Heart failure, unspecified (principal); I51.7 Cardiomegaly
CPT/HCPCS: 71046

== ENCOUNTER 2023-04-03 14:11 | Outpatient (CLI) | payer MEDICARE, OTHER, SELFPAY ==
[2023-04-03 14:40] LABS: Basophils Percent Auto 0.5 % (0.2-1.2); Eosinophils Absolute Auto 0.1 K/mm3 (0-0.3); Eosinophils Percent Auto 1.6 % (0-4.4); Hemoglobin 16.4 g/dL (14.0-18.0); Immature Granulocyte Absolute 0.04 K/mm3 (0.00-0.031); Immature Granulocyte Percent A 0.7 % (0-0.5); Lymphocytes Absolute Auto 1.31 K/mm3 (0.9-3.2); Lymphocytes Percent Auto 22.8 % (18.3-44.2); Mean Corpuscular HGB Conc 34.2 g/dl (32-36); Mean Corpuscular Hemoglobin 31.4 pg (26-34); Mean Corpuscular Volume 91.8 fl (80-100); Mean Platelet Volume 11.4 fl (7.4-10.4); Monocytes Absolute Auto 0.7 K/mm3 (0.1-0.6); Monocytes Percent Auto 12.7 % (2.6-8.5); Neutrophils Absolute Auto 3.6 K/mm3 (1.3-6.7); Neutrophils Percent Auto 61.7 % (45.5-73.1); Platelet Count Result 156 k/mm3 (150-375); Red Blood Count 5.23 M/mm3 (4.6-6.20); Red Cell Distribution Width 12.9 % (11.5-14.5); White Blood Count 5.8 K/mm3 (4.5-10.0)
[2023-04-03 16:48] LABS: Iron 116 ug/dL (49-181)
[2023-04-03 16:53] LABS: Alanine Aminotransferase 40 U/L (6-50); Albumin Level 4.2 g/dL (3.5-5.1); Alkaline Phosphatase 39 U/L (38-126); Anion Gap 7 mmol/L (8-16); Aspartate Amino Transferase 40 U/L (17-59); Bilirubin,Total 0.7 mg/dL (0.2-1.3); Blood Urea Nitrogen 81 mg/dL (9-20); Calcium 9.5 mg/dL (8.4-10.2); Carbon Dioxide 31 mmol/L (22-30); Chloride 100 mmol/L (98-107); Estimated Glomerular Filt Rate 34; Glucose 117 mg/dL (65-110); Potassium 4.3 mmol/L (3.4-5.0); Sodium 138 mmol/L (137-145)
[2023-04-03 17:08] LABS: Percent Iron Saturation 27 % (20-50)
[2023-04-03 18:23] LABS: Folic Acid > 20.0 ng/mL (2.76->20)
[2023-04-06 23:22] LABS: Platelet Antibody, Direct NEGATIVE (NEGATIVE)
[2023-04-07 17:50] LABS: Methylmalonic Acid 426 nmol/L (87-318)
[2023-04-10 14:53] LABS: Soluble Transferrin Receptor 1.68 mg/L (0.76-1.76)
== END 2023-04-03 14:12 | disposition home or self-care (01) ==
LOC: ANHLAB 14:14
PROVIDERS: PCP Family Medicine; Visit Provider Internal Medicine Hematology & Oncology
DX: D64.9 Anemia, unspecified (principal); D69.59 Other secondary thrombocytopenia
CPT/HCPCS: 36415; 80053; 82607; 82728; 82746; 83540; 83550; 83921; 84238; 85025; 86023

== ENCOUNTER → 2023-04-10 08:41 | Outpatient (CLI) | payer MEDICARE, OTHER, SELFPAY ==
--- NOTE | ~2023-04-10 | US_ITS ---
US abdomen complete EXAMINATION: US Abdomen Complete INDICATION: Thrombocytopenia PROCEDURE: Realtime High Resolution abdomen ultrasound. COMPARISON: No prior studies for comparison FINDINGS: Gallbladder within normal limits. No gallstones, pericholecystic fluid, gallbladder wall t hickening or biliary dilatation. Common bile duct measures 4 mm. Liver echotexture is heterogeneous without discrete mass. Liver echotexture is increased, consistent with fatty infiltration.. Pancreas within normal limits. Pancreatic tail is obscured by bowel gas. Spleen is enlarged measuring 13.4 cm. Renal echotexture is within normal limits bilaterally without hydronephrosis, contour deforming mass or renal stone. Right kidney measures 11.8 cm. Left kidney cruz sures 12.1 cm. Visualized aspects of the aorta and IVC are within normal limits. Portal vein is patent. No sonograph ic Hylton's sign indicated by the technologist. IMPRESSION: 1: Splenomegaly. 2: Fatty infiltration of the liver. Reviewed, dictated and finalized at location B. L MODEL BUILDER
== END ==
PROVIDERS: PCP Family Medicine; Visit Provider Internal Medicine Hematology & Oncology
DX: D69.59 Other secondary thrombocytopenia (principal); R16.1 Splenomegaly, not elsewhere classified; K76.0 Fatty (change of) liver, not elsewhere classified
CPT/HCPCS: 76700

== ENCOUNTER 2023-05-13 04:10 | Day surgery (SDC) | payer MEDICARE, OTHER, SELFPAY ==
[2023-05-10 17:16] VITALS: BMI 37.8
--- NOTE | 2023-05-13 | ECHO_ITS ---
Patient Info Name: Edmundo Aguirre Age: 78 years : 1945 Gender: Male Ht: 71 in Wt: 271 lbs BSA: 2.53 m2 HR: 58 bpm BP: 114 / 65 mmHg Heart Rhythm: Atrial Fibrillation Technical Quality: Good Exam Date: 05/13/2023 2:03 PM Exam Location: Echo Lab Exam Room: [facility] [employer] Patient Status: Outpatient Admit Date: 05/13/2023 Staff Ordering Physician: Nico Vance MD Meat Loiner: Aruna Doran RDCS Attending Provider: Nico Vance MD Referring Physician: Rajiv MANUEL; Exam Type: CA echo transesophageal Study Info Indications - MITRAL VALVE INSUFFIENCY Summary 1. Left ventricular enlargement with severe systolic dysfunction. 2. With severe left atrial enlargement. 3. Moderate mitral regurgitation resulting from annular dilation and posterior papillary muscle dysfunction. 4. Normally functioning and normal appearing aortic valve bioprosthesis with trace prosthetic AI. 5. Atrial fibrillation. Left Ventricle Left ventricular chamber dimension is moderately enlarged. Left ventricular systolic function is severely reduced with an ejection fraction by Biplane Method of Discs of Empty. Right Ventricle Right ventricular chamber dimension is normal. Left Atria Left atrial chamber dimension is severely enlarged. Right Atria Right atrial chamber dimension is mildly enlarged. Aortic Valve There is Empty bioprosthetic aortic valve stenosis. There is trace regurgitation of the bioprosthetic aortic valve. Pulmonic Valve The pulmonic valve is normal. Mitral Valve The mitral valve has normal leaflets. There is moderate mitral valve regurgitation. Tricuspid Valve The tricuspid valve leaflets are normal. Pericardium/Pleural The pericardium appears normal. Inferior Vena Cava Not well visualized inferior vena cava with Empty collapse upon inspiration consistent with Empty right atrial pressure, Empty. Aorta The aortic root size at the sinus of Valsalva is normal. Report Signatures
[2023-05-13 11:19] VITALS: BP 114/68; PULSE 77; RESP 20; TEMP 36.6; O2SAT 100
[2023-05-13 14:30] VITALS: BP 119/72; PULSE 74; RESP 14; O2SAT 98
--- NOTE | 2023-05-13 14:31 | P.PCNCC_ITS ---
Cardiac Cath Procedure Note Date of procedure:: 05/13/23 Performing physician:: Nico Vance MD Indication:: Worsening exertional dyspnea Left ventricular systolic dysfunction Ischemic heart disease, valvular heart disease Chronic atrial fibrillation Brief clinical history:: This is an 78-year-old man known to have coronary disease and valvular heart disease as well as chronic atrial fibrillation. He has been having worsening shortness of breath. Because of concern regarding more significant mitral regurgitation henry was recommended to further evaluate his mitral valve regurgitation. He is known to have multivessel coronary disease with previous CABG and high risk percutaneous revascularization. He received a bioprosthetic aortic valve in 2004. Procedure Procedure performed:: Transesophageal echocardiogram Sedation/Medication given:: Sedation per the Anesthesia Service, see their note for details Estimated blood loss:: No blood loss Procedure note:: Patient was brought to the cardiac catheterization lab holding area in the postabsorptive state in supine position. IV access was placed in the anesthesia service was there to provide sedation. Or pharyngeal benzocaine was used and after this the patient was sedated. The HENRY probe was placed into the hypopharynx and then advanced into the esophagus without difficulty. Multiplane HENRY exam was performed uneventfully. Following completion of the exam the HENRY probe was withdrawn in the right sedation recovery was monitored per the anesthesia nurse coppersmith helper. Procedure was well tolerated and uncomplicated. Findings:: The left atrium is markedly dilated. The mitral valve leaflets are normal in appearance in the valve annulus is dilated. There is a moderate jet of mitral regurgitation that appears to be centrally directed in most views and is likely the result of annular dilation. There were no disrupted or flail mitral valve elements visualized. The left ventricle is significantly dilated and globally hypodynamic the ejection fraction is visually estimated at 25%. The bioprosthetic aortic valve was visualized in the short axis as well as in the long axis projection. Valve is unremarkable in appearance the prosthetic leaflets exhibit good excursion. There is a very small amount of prosthetic AI. The aortic root aortic arch and descending thoracic aortic look normal. Right- sided chambers are not dilated and are unremarkable in appearance. There is no pericardial fluid. Color Doppler examination of the mitral valve demonstrates moderate mitral regurgitation. The color Doppler exam of the LV outflow tract as described above shows trivial AI. Conclusion:: 1. Left ventricular dilation with severe global systolic dysfunction 2. Bioprosthetic aortic valve implanted in 2004 appears to be functioning well 3. Moderate mitral regurgitation resulting from annular dilation no flail v alvular elements or disrupted chordae 4. Massive left atrial dilation with chronic atrial fibrillation Nico Vance MD [facility]
[2023-05-13 14:45] VITALS: BP 113/57; PULSE 75; RESP 19; O2SAT 99
[2023-05-13 15:00] VITALS: BP 111/60; PULSE 62; RESP 14; O2SAT 97
[2023-05-13 15:15] VITALS: BP 108/60; PULSE 72; RESP 12; O2SAT 99
[2023-05-13 15:30] VITALS: BP 118/68; PULSE 63; RESP 12; O2SAT 99
== END 2023-05-13 15:53 | disposition home or self-care (01) ==
PROVIDERS: PCP Family Medicine; Visit Provider Specialist
PROC: (CPT 93312; principal; 2023-05-13 13:00)
DX: I34.0 Nonrheumatic mitral (valve) insufficiency (principal); Z95.2 Presence of prosthetic heart valve; I25.10 Atherosclerotic heart disease of native coronary artery without angina pectoris; I48.20 Chronic atrial fibrillation, unspecified; I11.9 Hypertensive heart disease without heart failure; Z95.1 Presence of aortocoronary bypass graft; Z79.02 Long term (current) use of antithrombotics/antiplatelets; Z79.01 Long term (current) use of anticoagulants
CPT/HCPCS: 93312; 93320; 93325; A9270; J7030

== ENCOUNTER 2023-06-10 13:52 | Inpatient (IN) | payer MEDICARE, OTHER, SELFPAY ==
[2023-06-10] VITALS (20 sets, daily range): BP systolic 102–132; BP diastolic 47–83; PULSE 65–91; RESP 12–29; TEMP 36.4–36.6; O2SAT 91–100; BMI 37.2
--- NOTE | ~2023-06-10 | XR_ITS ---
XR chest 2V 06/10/2023 14:42 Indication: Shortness of breath Procedure: 2 view chest Comparison: Comparison to multiple prior studies sequentially, with oldest reviewed study dated 11/2014. Findings: Status post median sternotomy for CABG. Cardiomegaly. Mild interstitial edema. Small pleura l effusions. No pneumothorax. No acute osseous abnormality. Impression: 1: Cardiomegaly with mild interstitial edema. Reviewed, dictated and finalized at location B. Impression: 1: Cardiomegaly with mild interstitial edema.
--- NOTE | ~2023-06-10 | US_ITS ---
EXAMINATION:US venous doppler LE BI INDICATION:Bilateral lower extremity edema TECHNIQUE: Multiple grayscale, color flow and Doppler images of the right and left lower extremity de ep venous systems were obtained and reviewed. COMPARISON:05/21/2022 FINDINGS: The common femoral, superficial femoral and popliteal veins demonstrate normal respiratory variation, augmentation and compressibility. Color flow is also seen within the posterior tibial, pe roneal, greater saphenous and profunda veins. IMPRESSION: 1: No lower extremity deep venous thrombosis. Reviewed, dictated and finalized at location L.
--- NOTE | ~2023-06-10 | US_ITS ---
EXAMINATION: US renal BI DATE: 06/11/2023 09:32 INDICATION: Renal insufficiency TECHNIQUE: Multiple ultrasound grayscale images of the kidneys were obtained. COMPARISON: None. FINDINGS: The right kidney measures 11.7 x 6.8 x 5.1 cm. The left kidney measures 4.9 x 6.5 x 5.1 cm. The kidne ys demonstrate normal echogenicity. 2.1 cm anechoic left renal cyst. There is no hydronephrosis in ei ther kidney. No stones identified. The bladder is normal. IMPRESSION: 1. 2.1 cm left renal cyst. Otherwise normal kidneys without hydronephrosis. Reviewed, dictated and finalized at location A.
--- NOTE | 2023-06-10 13:53 | ECG_ITS ---
Measurements Intervals [place] Rate: 70 P: OK: 0 QRS: -63 QRSD: 108 T: 122 QT: 415 QTc: 450 Interpretive Statements ATRIAL FIBRILLATION VENTRICULAR COUPLET AND VENTRICULAR PREMATURE COMPLEX ANTEROSEPTAL INFARCT, AGE INDETERMINATE INFERIOR INFARCT, AGE INDETERMINATE ST-T WAVE ABNORMALITY IN HIGH LATERAL LEADS- CONSIDER ISCHEMIA ABNORMAL ECG COMPARED TO ECG 05/17/2022 14:34:33 HEART RATE HAS INCREASED Electronically Signed On 06-10-2023 14:14:49 CDT by Sadiq Boone D.O.
[2023-06-10 14:27] LABS: Basophils Percent Auto 0.2 % (0.2-1.2); Eosinophils Absolute Auto 0.2 K/mm3 (0-0.3); Eosinophils Percent Auto 3.4 % (0-4.4); Hematocrit 48.8 % (42.0-52.0); Hemoglobin 15.5 g/dL (14.0-18.0); Immature Granulocyte Absolute 0.01 K/mm3 (0.00-0.031); Immature Granulocyte Percent A 0.2 % (0-0.5); Immature Platelet Fraction Pct 8.9 % (0.9-11.2); Lymphocytes Absolute Auto 0.64 K/mm3 (0.9-3.2); Lymphocytes Percent Auto 14.6 % (18.3-44.2); Mean Corpuscular HGB Conc 31.8 g/dl (32-36); Mean Corpuscular Hemoglobin 30.5 pg (26-34); Mean Corpuscular Volume 95.9 fl (80-100); Mean Platelet Volume 12.2 fl (7.4-10.4); Monocytes Absolute Auto 0.4 K/mm3 (0.1-0.6); Monocytes Percent Auto 9.8 % (2.6-8.5); Neutrophils Absolute Auto 3.2 K/mm3 (1.3-6.7); Neutrophils Percent Auto 71.8 % (45.5-73.1); Platelet Count Result 73 k/mm3 (150-375); Red Blood Count 5.09 M/mm3 (4.6-6.20); Red Cell Distribution Width 13.7 % (11.5-14.5); White Blood Count 4.4 K/mm3 (4.5-10.0)
[2023-06-10 14:35] LABS: Alanine Aminotransferase 32 U/L (6-50); Albumin Level 4.1 g/dL (3.5-5.1); Alkaline Phosphatase 29 U/L (38-126); Anion Gap 5 mmol/L (8-16); Aspartate Amino Transferase 52 U/L (17-59); Bilirubin,Total 0.9 mg/dL (0.2-1.3); Blood Urea Nitrogen 67 mg/dL (9-20); Calcium 9.6 mg/dL (8.4-10.2); Carbon Dioxide 30 mmol/L (22-30); Chloride 106 mmol/L (98-107); Estimated CRCL calculation 37 ml/min; Estimated Glomerular Filt Rate 34; Glucose 107 mg/dL (65-110); Potassium 4.4 mmol/L (3.4-5.0); Sodium 141 mmol/L (137-145)
--- NOTE | 2023-06-10 15:21 | ED.SOB ---
HPI - SOB/Dyspnea General Chief Complaint: Shortness of Breath/Dyspnea Stated Complaint: shortness of breathe from PCP Time Seen by Provider: 06/10/23 15:10 History of Present Illness HPI Narrative: Pt presents with worsening SOB over the last several days and weight gain. Pt has history of CHF and see Dr Giles and had ZA last month. Pt denies CP or fever. Pt says his right leg is painful and a little more red than the left. Related Data Home Medications Medication Instructions Recorded Confirmed clopidogrel 75 mg tablet (Plavix) 75 mg PO DAILY 03/27/19 06/10/23 duloxetine 30 mg capsule,delayed 30 mg PO BID 03/27/19 06/10/23 release meclizine 25 mg tablet 25 mg PO TID PRN Vertigo 08/03/19 06/10/23 rivaroxaban 15 mg tablet (Xarelto) 15 mg PO DAILY 05/16/22 06/10/23 omega 9-qsm-kuw-fish oil 1,000 mg 1 cap PO BID 08/24/22 06/10/23 (120 mg-180 mg) capsule (Fish Oil) furosemide 20 mg tablet 60 mg PO QAM 03/19/23 06/10/23 gabapentin 300 mg capsule 300 mg PO TID alternates 3/4 tabs 05/10/23 06/10/23 daily multivitamin 1 tablet PO DAILY WITH FOOD 05/10/23 06/10/23 senna-docusate sodium tablet 1 tablet PO QMWF 05/10/23 06/10/23 fenofibrate 160 mg tablet 145 mg PO DAILY 06/10/23 06/10/23 Allergies Allergy/AdvReac Type Severity Reaction Status Date / Time No Known Allergies Allergy Verified 05/10/23 16:00 Review of Systems Review of Systems: All systems reviewed & are unremarkable except as noted in HPI and below PMFSH Past Medical History Medical History (Updated 06/10/23 @ 15:41 by Irma Phillips III, DO) Bilateral leg ulcer BMI 36.0-36.9,adult BMI 37.0-37.9, adult BMI 38.0-38.9,adult BMI 40.0-44.9, adult CAD (coronary artery disease) Congestive heart failure Drooling Excessive daytime sleepiness Rheumatoid arthritis Tinea corporis Ulcer of left lower leg Unspecified atrial fibrillation Surgical History Surgical History H/O aortic valve replacement H/O arthroscopy of knee H/O arthroscopy of shoulder H/O cardiac radiofrequency ablation H/O shoulder replacement History of knee replacement S/P CABG x 3 Family History Family History Grandparent Cerebrovascular accident Father Family history of malignant neoplasm Heart murmur Mother Sibling Other No family history of cardiovascular disease No family history of diabetes mellitus No family history of hypertension No family history of malignant neoplasm Social History Social History Years smoked: 0 Smoking status: Never smoker Second hand tobacco smoke exposure: No Alcohol intake: never Drinks per week: 0 Alcohol use details: 0 Substance use: never Substance use type: does not use Do You Feel Safe in your Home?: Yes Lack of Transportation: No Lack of Food: Never True Current Housing: I Have Housing Concerned About Future Housing: No Difficulty Paying Gas/Electric Bills: No Difficulty Paying for Meds: No Currently Unemployed: No Education: Trade/Vocational Certificate Difficulty w/ Childcare or Family Care: No Living arrangements: with family Occupation/Education: retired 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 Gender identity (if verbalized by the patient): Male Spiritual care concerns: No Exam Const: General: healthy appearing and no acute distress Nutritional Appearance: obese Orientation/consciousness: patient oriented x3 Limitations: no limitations Resp: Effort & Inspection: normal respiratory effort Auscultation: crackles Cardio: Rate: regular rate Rhythm: abnormal rhythm GI: GI Palp: Yes Soft to palpation Auscultation: normal bowel sounds Skin: Other: slight erythema to inside of right lower leg Neuro: General: patien
[2023-06-10 15:26] LABS: NT Pro B Type Natriuretic Pept 5890 pg/mL (19.9-100); Troponin I 0.052 ng/mL (0.000-0.034)
[2023-06-10 15:29] LABS: INR 1.6; Prothrombin Time 20.1 Seconds (11.1-14.7)
[2023-06-10 15:32] LABS: Hypochromasia 1+; Platelet Estimate Decreased (Adequate); Schistocytes None Seen
[2023-06-10] MEDS: FUROSEMIDE INJ 100 MG/10 ML VIAL 80 MG IV PUSH (16:18)
[2023-06-10] MEDS: MORPHINE SULFATE (*CRX) 2 MG/ML INJ IV PUSH ×2 (16:18→20:36)
--- NOTE | 2023-06-10 17:22 | PM.IMHP ---
H&P: HPI History of Present Illness Date/Time: 06/10/23 16:30 Chief Complaint: Shortness of breath. Narrative: This is a very pleasant 78-year-old male with heart failure with reduced ejection fraction, coronary artery disease with history of CABG, valvular heart disease status post bioprosthetic aortic valve replacement, chronic atrial fibrillation, obstructive sleep apnea on CPAP, rheumatoid arthritis, and other comorbidities who presented to the emergency department for evaluation of shortness of breath. The patient provides the following history. The last several days he has noticed an increase in lower extremity edema and dyspnea on lesser and lesser exertion in addition to orthopnea and a 6 lb weight gain. He also complains of pain and redness of the right lower leg similar to when he had cellulitis. He states compliance with his home medications. He denies fever, chills, sweats, syncope, near syncope, cold and flu symptoms, chest and pleuritic pain, abdominal pain, nausea, vomiting, and diarrhea. Vital signs have been stable since arrival to the ED. labs were significant for WBC count of 4.4, platelets 73, BUN 67, creatinine 1.90, troponin 0.052, proBNP 5890. EKG showed atrial fibrillation without any acute ST changes compared to previous tracings. Chest x-ray showed cardiomegaly with mild interstitial edema. He was given 80 mg IV Lasix and he is being admitted in this setting for further treatment of CHF exacerbation and suspected right leg cellulitis. Review of Systems Review of Systems: Twelve systems were reviewed and are negative except for as per HPI. [facility] Past Medical History Medical History (Updated 06/10/23 @ 20:57 by Lore King PA-C) Chronic anticoagulation Chronic atrial fibrillation Congestive heart failure Coronary artery disease Kidney stones Obstructive sleep apnea on CPAP Rheumatoid arthritis Surgical History Surgical History (Updated 06/10/23 @ 20:52 by Lore King PA-C) History of aortic valve replacement with bioprosthetic valve History of arthroplasty of left knee History of arthroscopy of both shoulders History of cardiac radiofrequency ablation History of carpal tunnel release History of coronary artery bypass graft x 3 History of total replacement of both shoulder joints Family History Family History Grandparent Cerebrovascular accident Father Family history of malignant neoplasm Heart murmur Mother Sibling Other No family history of cardiovascular disease No family history of diabetes mellitus No family history of hypertension No family history of malignant neoplasm Social History Social History (Updated 06/10/23 @ 20:53 by Lore King PA-C) Social History: Surrogate medical decision maker: Khalida Aguirre, spouse. Code status: Full code. Years smoked: 0 Smoking status: Never smoker Second hand tobacco smoke exposure: No Alcohol intake: never Drinks per week: 0 Alcohol use details: 0 Substance use: never Substance use type: does not use Do You Feel Safe in your Home?: Yes Lack of Transportation: No Lack of Food: Never True Current Housing: I Have Housing Concerned About Future Housing: No Difficulty Paying Gas/Electric Bills: No Difficulty Paying for Meds: No Currently Unemployed: No Education: Trade/Vocational Certificate Difficulty w/ Childcare or Family Care: No Living arrangements: with family Occupation/Education: retired 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 Spiritual care concerns: No Meds Home Medications and Allergies Home Medications Medication Instructions Recorded Confirmed Type clopidogrel 75 mg tablet (Plavix) 75 mg PO DAILY 03/27/19 06/10/23 History duloxetine 30 mg capsule,delayed 30 mg PO BID 03/27/19 06/10/23 History release meclizi
--- NOTE | 2023-06-10 17:56 | ADMGEN ---
This patient, Edmundo Aguirre, was admitted to IMU Room 232-01. Patient/family oriented to hospital policies and general routines including ID bracelet, bed and alarms, visiting hours, pain management, procedures, bathroom and other care routines, personal items, smoking policy, room service/diet, and visiting hours. Information on how to activate the Rapid Response Team has been discussed. Patient/Family are encouraged to report perceived risks to care and to ask questions if they do not understand what they are told or what they should do.
[2023-06-11] VITALS (14 sets, daily range): BP systolic 91–126; BP diastolic 49–84; PULSE 58–109; RESP 12–22; TEMP 36.1–36.6; O2SAT 89–100
[2023-06-11] MEDS: MORPHINE SULFATE (*CRX) 2 MG/ML INJ IV PUSH ×2 (00:01→06:02)
[2023-06-11] MEDS: ceFAZolin 1 GM/NS 50 ML 1 GM/50 ML BAG IVPB ×3 (00:03→21:21)
[2023-06-11] MEDS: RIVAROXABAN 15 MG TABLET PO ×2 (00:10→16:42)
[2023-06-11] MEDS: OMEGA 3 POLYUNSAT FATTY ACIDS 1 GM CAP PO ×3 (00:10→16:42)
[2023-06-11] MEDS: EZETIMIBE 10 MG TABLET PO ×2 (00:11→21:15)
[2023-06-11] MEDS: DULoxetine HCL 30 MG CAPSULE.DR PO ×3 (00:11→16:42)
[2023-06-11] MEDS: SACUBITRIL/VALSARTAN 24-26 MG TABLET 1 TAB PO ×2 (00:11→08:20)
[2023-06-11 05:15] LABS: Hematocrit 48.4 % (42.0-52.0); Hemoglobin 15.5 g/dL (14.0-18.0); Mean Corpuscular Hemoglobin 30.6 pg (26-34); Mean Corpuscular Volume 95.5 fl (80-100); Platelet Count Result 76 k/mm3 (150-375); Red Blood Count 5.07 M/mm3 (4.6-6.20); Red Cell Distribution Width 13.7 % (11.5-14.5); White Blood Count 7.8 K/mm3 (4.5-10.0)
[2023-06-11 05:39] LABS: Anion Gap 10 mmol/L (8-16); Blood Urea Nitrogen 64 mg/dL (9-20); Calcium 9.5 mg/dL (8.4-10.2); Carbon Dioxide 26 mmol/L (22-30); Chloride 105 mmol/L (98-107); Estimated CRCL calculation 37 ml/min; Estimated Glomerular Filt Rate 34; Glucose 105 mg/dL (65-110); Magnesium 2.6 mg/dL (1.6-2.3); Potassium 4.1 mmol/L (3.4-5.0); Sodium 141 mmol/L (137-145)
[2023-06-11 06:38] LABS: Creatinine Urine 63.7 mg/dL
[2023-06-11 06:39] LABS: Potassium Urine Random 40.1 meq/L; Sodium Urine Random 66 meq/L
[2023-06-11] MEDS: MULTIVITAMINS THERAPEUTIC TAB (*BKC) 1 TABLET PO (08:19)
[2023-06-11] MEDS: CLOPIDOGREL BISULFATE 75 MG TABLET PO (08:20)
[2023-06-11] MEDS: FENOFIBRATE NANOCRYSTALLIZED 145 MG TABLET PO (08:21)
[2023-06-11] MEDS: TAMSULOSIN HCL 0.4 MG CAPSULE PO (08:21)
[2023-06-11] MEDS: allopurinoL 300 MG TABLET PO (08:21)
--- NOTE | 2023-06-11 08:56 | PM.IMPN ---
Progress Note: A&P Assessment and Plan (1) CHF exacerbation: Code(s): I50.9 - Heart failure, unspecified Status: Acute (2) Elevated troponin: Code(s): R79.89 - Other specified abnormal findings of blood chemistry Status: Acute (3) Renal insufficiency: Code(s): N28.9 - Disorder of kidney and ureter, unspecified Status: Acute (4) Cellulitis of right leg: Code(s): L03.115 - Cellulitis of right lower limb Status: Acute (5) Chronic atrial fibrillation: Code(s): I48.20 - Chronic atrial fibrillation, unspecified Status: Acute (6) Chronic anticoagulation: Code(s): Z79.01 - buttermaker continuous churn (current) use of anticoagulants Status: Acute (7) Obstructive sleep apnea on CPAP: Code(s): G47.33 - Obstructive sleep apnea (adult) (pediatric) Status: Acute (8) Rheumatoid arthritis: Qualifiers: Rheumatoid arthritis location: unspecified site Rheumatoid factor presence: unspecified presence Qualified Code(s): M06.9 - Rheumatoid arthritis, unspecified Code(s): M06.9 - Rheumatoid arthritis, unspecified Status: Acute Plan 78-year-old male with history of heart failure with reduced ejection fraction, coronary artery disease with history of CABG, valvular heart disease status post bioprosthetic aortic valve replacement, chronic atrial fibrillation, obstructive sleep apnea on CPAP, rheumatoid arthritis presented to the ER for evaluation of shortness of breath. Last several days he had noticed increasing lower extremity edema and dyspnea on less and less exertion in addition to orthopnea and 6 lb weight gain. He also complained of pain and redness of the right lower leg similar to when he had cellulitis in the past. He states compliance with his home medications. No fever chills no sweats eating syncope near-syncope cold or flu symptoms chest pain. No abdominal pain nausea vomiting diarrhea. ED evaluation: Vitals were stable. Labs WBC 4.4 [place] was 43613 BUN 67 creatinine 1.9 troponin was 0.052 proBNP 5890. EKG showed atrial fibrillation without any acute ST-T changes compared to previous tracings. Chest x-ray with cardiomegaly and mild interstitial edema. Acute on chronic systolic congestive Heart failure: Continue diuresis as ordered on Entresto Lasix 40 b.i.d. EF 25% at home he is on 60 mg daily Lasix cardiology consult Mild troponin elevation serial troponin 0.052-0.06 0-0.050 likely related to CHF Renal insufficiency CKD stage 3 creatinine 1.9 at baseline compared to March labs. In 2022 was a bit lower at 0.9-1. Strict I/O renal ultrasound urine lytes Right leg cellulitis started on Ancef Chronic atrial fibrillation Moderate mitral regurgitation and posterior papillary muscle dysfunction from ZA Status post aortic valve replacement with bioprosthesis SAVANNAH on CPAP Chronic thrombocytopenia may be related to tocilizumab which he takes for rheumatoid arthritis. 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 Feels better. Right leg swelling is improved. Pain is less. Breathing is better. No chest pain. No cough. Review of Systems Review of Systems: All systems reviewed & are unremarkable except as noted in HPI and below Exam Narrative: General: Well-appearing gentleman in the semi-Marie position in bed. Not in acute distress HEENT: Normocephalic, atraumatic. PERRL, EOMI. Sclera anicteric. Oral mucosa moist. Neck: Supple. No significant jugular venous distension. Respiratory: Diminished breath sounds bilaterally no wheezes or crackles heard Cardiovascular: Irregularly irregular rate and rhythm. Systolic murmurs heard at the upper sternal border and apex. Gastrointestinal: Abdomen is soft, protuberant, nontender, and nondistended with positi
[2023-06-11] MEDS: FUROSEMIDE INJ 40 MG/4 ML VIAL IV PUSH ×2 (09:46→16:45)
--- NOTE | 2023-06-11 14:26 | PM.CNCAR ---
Assessment and Plan Assessment and plan (1) Acute on chronic HFrEF (heart failure with reduced ejection fraction): Code(s): I50.23 - Acute on chronic systolic (congestive) heart failure Status: Acute Assessment and Plan: Recent ZA 05/13/2023 shows LVEF 25%, normal function of bioprosthetic aortic valve, moderate MR, massive left atrial dilatation. Continue IV Lasix for now. Please monitor strict I/Os. Will increase his Entresto to 49/51mg BID. If his blood pressures tolerate the increased dose of Entresto well, can consider adding Spironolactone or SGLT2-inhibitor. He was previously taken off of beta alejandro due to bradycardia, therefore, will not plan to retry him on a beta alejandro. (2) Elevated troponin: Code(s): R79.89 - Other specified abnormal findings of blood chemistry Status: Acute Assessment and Plan: Mildly elevated but flat. No chest pain. No ECG changes. Not consistent with an acute coronary syndrome. Likely demand ischemia from decompensated heart failure. (3) Renal insufficiency: Code(s): N28.9 - Disorder of kidney and ureter, unspecified Status: Acute Assessment and Plan: Closely monitor renal function while diueresing. (4) Cellulitis of right leg: Code(s): L03.115 - Cellulitis of right lower limb Status: Acute Assessment and Plan: On antibiotics, management as per Hospitalist. (5) Chronic anticoagulation: Code(s): Z79.01 - supervisor intermediates (current) use of anticoagulants Status: Acute Assessment and Plan: Continue Xarelto. (6) Chronic atrial fibrillation: Code(s): I48.20 - Chronic atrial fibrillation, unspecified Status: Acute Assessment and Plan: Rate controlled without any medications. Continue Xarelto. (7) Mixed hyperlipidemia: Code(s): E78.2 - Mixed hyperlipidemia Status: Acute Assessment and Plan: Continue Zetia and fibrate (8) Coronary artery disease: Code(s): I25.10 - Atherosclerotic heart disease of [place] coronary artery without angina pectoris Status: Acute Assessment and Plan: Stable. Remote history of CABG and high risk percutaneous intervention and stent implantation 2018. Continue Plavix. (9) S/P aortic valve replacement with bioprosthetic valve: Code(s): Z95.3 - Presence of xenogenic heart valve Status: Acute Assessment and Plan: Recent ZA 05/13/2023 shows normal function of bioprosthetic aortic valve Plan Recommendations and plan discussed with Hospitalist. History of Present Illness History of Present Illness Consult date/time: 06/11/23 14:26 Requesting physician: Lore King PA-C Consult reason: congestive heart failure Reason For Visit: CHF Narrative: We are consulted for CHF. This is an 78 year old male patient of Dr. Conde. He has coronary artery disease s/p CABG and PCI, SAVANNAH, hyperlipidemia, hypertension, atrial fibrillation/atrial flutter s/p ablation, history of bioprosthetic aortic valve replacement, heart failure with reduced ejection fraction. Patient presented for shortness of breath on exertion, increasing lower extremity edema, and a 6lb weight gain. He was actually seen in our office, and given decompensated heart failure, he was sent to the ER. ER workup showed SCr of 1.9. Troponins are 0.052, 0.060, 0.050. NT pro BNP is 5890. CXR with mild interstital edema. EKGs showed atrial fibrillation, old anteroseptal and inferior infarcts, STTW abnormality in the high lateral leads. No changes on EKG compared to previous. He has been started on IV Lasix, and has had improvement. Review of Systems Review of Systems: All systems reviewed & are unremarkable except as noted in HPI and below (HPI) [facility] Past Medical History Medical History Chronic anticoagulation Chronic atrial fibrillation Congestive heart failure Coronary artery disease Jules
[2023-06-11] MEDS: SACUBITRIL/VALSARTAN 49-51 MG TABLET 1 TABLET PO (21:15)
[2023-06-12] VITALS (16 sets, daily range): BP systolic 94–119; BP diastolic 52–84; PULSE 53–92; RESP 12–23; TEMP 35.7–36.7; O2SAT 93–100
[2023-06-12 05:01] LABS: Basophils Percent Auto 0.5 % (0.2-1.2); Eosinophils Absolute Auto 0.2 K/mm3 (0-0.3); Hematocrit 46.3 % (42.0-52.0); Hemoglobin 14.8 g/dL (14.0-18.0); Immature Granulocyte Absolute 0.01 K/mm3 (0.00-0.031); Immature Granulocyte Percent A 0.2 % (0-0.5); Immature Platelet Fraction Pct 9.3 % (0.9-11.2); Lymphocytes Absolute Auto 0.66 K/mm3 (0.9-3.2); Lymphocytes Percent Auto 15.4 % (18.3-44.2); Mean Corpuscular Hemoglobin 30.7 pg (26-34); Mean Corpuscular Volume 96.1 fl (80-100); Mean Platelet Volume 12.7 fl (7.4-10.4); Monocytes Absolute Auto 0.6 K/mm3 (0.1-0.6); Neutrophils Absolute Auto 2.8 K/mm3 (1.3-6.7); Neutrophils Percent Auto 65.9 % (45.5-73.1); Platelet Count Result 68 k/mm3 (150-375); Red Blood Count 4.82 M/mm3 (4.6-6.20); Red Cell Distribution Width 13.7 % (11.5-14.5); White Blood Count 4.3 K/mm3 (4.5-10.0)
[2023-06-12 05:12] LABS: Alanine Aminotransferase 27 U/L (6-50); Albumin Level 3.8 g/dL (3.5-5.1); Alkaline Phosphatase 26 U/L (38-126); Anion Gap 5 mmol/L (4-12); Aspartate Amino Transferase 45 U/L (17-59); Blood Urea Nitrogen 63 mg/dL (9-20); Carbon Dioxide 31 mmol/L (22-30); Chloride 104 mmol/L (98-107); Estimated CRCL calculation 34 ml/min; Estimated Glomerular Filt Rate 31; Glucose 105 mg/dL (65-110); Magnesium 2.4 mg/dL (1.6-2.3); Sodium 140 mmol/L (137-145)
[2023-06-12 05:31] LABS: Ovalocytes 1+; Platelet Estimate Decreased (Adequate); Schistocytes None Seen
[2023-06-12 05:32] LABS: Hypochromasia 1+
[2023-06-12] MEDS: allopurinoL 300 MG TABLET PO (08:36)
[2023-06-12] MEDS: ceFAZolin 1 GM/NS 50 ML 1 GM/50 ML BAG IVPB ×2 (08:36→20:37)
[2023-06-12] MEDS: GABAPENTIN 300 MG CAPSULE PO (08:37)
[2023-06-12] MEDS: SACUBITRIL/VALSARTAN 49-51 MG TABLET 1 TABLET PO ×2 (08:37→20:37)
[2023-06-12] MEDS: OMEGA 3 POLYUNSAT FATTY ACIDS 1 GM CAP PO ×2 (08:37→16:59)
[2023-06-12] MEDS: FENOFIBRATE NANOCRYSTALLIZED 145 MG TABLET PO (08:37)
[2023-06-12] MEDS: DULoxetine HCL 30 MG CAPSULE.DR PO ×2 (08:37→16:59)
[2023-06-12] MEDS: TAMSULOSIN HCL 0.4 MG CAPSULE PO (08:37)
[2023-06-12] MEDS: CLOPIDOGREL BISULFATE 75 MG TABLET PO (08:37)
[2023-06-12] MEDS: MULTIVITAMINS THERAPEUTIC TAB (*BKC) 1 TABLET PO (08:37)
[2023-06-12] MEDS: FUROSEMIDE INJ 40 MG/4 ML VIAL IV PUSH ×2 (08:38→16:59)
[2023-06-12] MEDS: SENNA/DOCUSATE SODIUM TABLET 1 TAB PO (08:40)
--- NOTE | 2023-06-12 11:44 | PM.IMPN ---
Progress Note: A&P Assessment and Plan (1) CHF exacerbation: Code(s): I50.9 - Heart failure, unspecified Status: Acute Assessment and Plan: Patient with CHF who noted increasing LE edema and MARSHALL in addition to orthopnea and 6 lb weight gain. Kyaw 05/13/23 shows LV enlargement with severe systolic dysfunction (EF 25%), severe LAE, moderate MR from dilation and posterior papillary muscle duysfxn and normal bioprosthetic aortic valve with trace AI. EKG on admission shows AFib rate of 70, PVCs with couplets, evidence of age-indeterminate anterior septal and inferior infarct with ST-T wave changes in the high lateral leads. ProBNP was 5890. Chest x-ray shows cardiomegaly with mild interstitial edema. Acute on chronic systolic congestive Heart failure Patient started on IV Lasix. Entresto continued and dose increased. No beta-alejandro due to bradycardia. Consider episodes of nonsustained V-tach as etiology of his worsening heart failure. Monitor UOP, daily weights and clincial status (2) Renal insufficiency: Code(s): N28.9 - Disorder of kidney and ureter, unspecified Status: Acute Assessment and Plan: Creatinine was normal last year in May. Creatinine elevated in March 2023 at 1.9. Creatinine 1.9 on admission has remained stable Renal ultrasound shows a 2.1 cm left renal cyst otherwise kidneys. Tolerating diuretics and increased Entresto. Continue to follow. (3) Elevated troponin: Code(s): R79.89 - Other specified abnormal findings of blood chemistry Status: Acute Assessment and Plan: Troponin elevated to 0.06 but overall flat. [place] related to the heart failure exacerbation as well as due to the renal insufficiency. (4) Cellulitis of right leg: Code(s): L03.115 - Cellulitis of right lower limb Status: Acute Assessment and Plan: Patient with evidence of cellulitis to the right lower extremity. He has a history of cellulitis in lower extremities. White blood cell count was low-normal. Venous Doppler was negative for DVT. No blood cultures collected. Patient started on Ancef. Will follow clinically. (5) Chronic atrial fibrillation: Code(s): I48.20 - Chronic atrial fibrillation, unspecified Status: Acute Assessment and Plan: Patient with chronic atrial fibrillation on Xarelto which has been continued. He is not on beta-alejandro or diltiazem due to history of bradycardia. Continue to monitor on telemetry. (6) Obstructive sleep apnea on CPAP: Code(s): G47.33 - Obstructive sleep apnea (adult) (pediatric) Status: Acute Assessment and Plan: Stable. Continue CPAP. (7) Rheumatoid arthritis: Qualifiers: Rheumatoid arthritis location: unspecified site Rheumatoid factor presence: unspecified presence Qualified Code(s): M06.9 - Rheumatoid arthritis, unspecified Code(s): M06.9 - Rheumatoid arthritis, unspecified Status: Acute Assessment and Plan: Stable. Patient takes tocilizumab. Side effects include neutropenia, thrombocytopenia and LOWELL Anti-plt Ab negative in March. LFTs okay. Hold tocilizumab for now Plan Code status - Full DVT prophylaxis on Xarelto Subjective Date/time seen: 06/12/23 11:44 Interval history: 78yo male with AFib and CHF here for leg eema and right LE erythema. Assuming care. Chart reviewed. Patient feels better overall today. No chest pain. Voiding well. Still feels short of breath at times. Exam Narrative: AF 97.8 108/64 77 22 100% Gen - NARD sitting on the couch Chest -bibasilar dry inspiratory crackles CV -irregularly irregular. S1-S2. Telemetry showing with AFib with frequent PVCs and runs of slow NSVT Abd - Soft, obese, NT, +BS Ext - bilateral LE edema Psych - Nml mood and affect Skin - Chronic venous stasis skin changes bilateral L>R lower legs. Mild erythema with ecchymosis medial aspect of the right mitchell
--- NOTE | 2023-06-12 11:46 | PM.PNCARD ---
Progress Note: A&P Assessment and Plan (1) Acute on chronic HFrEF (heart failure with reduced ejection fraction): Code(s): I50.23 - Acute on chronic systolic (congestive) heart failure Status: Acute Assessment and Plan: Recent ZA 05/13/2023 shows LVEF 25%, normal function of bioprosthetic aortic valve, moderate MR, massive left atrial dilatation. Continue IV Lasix for now. Please monitor strict I/Os. Increased his Entresto to 49/51mg BID. He is tolerating the increased dose well thus far. If his blood pressures tolerate the increased dose of Entresto well and his renal function remains stable, can consider adding Spironolactone or SGLT2-inhibitor. He was previously taken off of beta alejandro due to bradycardia, therefore, will not plan to retry him on a beta alejandro. (2) Elevated troponin: Code(s): R79.89 - Other specified abnormal findings of blood chemistry Status: Acute Assessment and Plan: Mildly elevated but flat. No chest pain. No ECG changes. Not consistent with an acute coronary syndrome. Likely demand ischemia from decompensated heart failure. (3) Renal insufficiency: Code(s): N28.9 - Disorder of kidney and ureter, unspecified Status: Acute Assessment and Plan: Closely monitor renal function while diuresing. His SCr did slightly bump overnight, which may be from the increased dose of Entresto. As patient remains with volume overloaded, will continue with diuretics for now. (4) Cellulitis of right leg: Code(s): L03.115 - Cellulitis of right lower limb Status: Acute Assessment and Plan: On antibiotics, management as per Hospitalist. (5) Chronic anticoagulation: Code(s): Z79.01 - group home (current) use of anticoagulants Status: Acute Assessment and Plan: Continue Xarelto. (6) Chronic atrial fibrillation: Code(s): I48.20 - Chronic atrial fibrillation, unspecified Status: Acute Assessment and Plan: Rate controlled without any medications. Continue Xarelto. (7) Mixed hyperlipidemia: Code(s): E78.2 - Mixed hyperlipidemia Status: Acute Assessment and Plan: Continue Zetia and fibrate (8) Coronary artery disease: Code(s): I25.10 - Atherosclerotic heart disease of [place] coronary artery without angina pectoris Status: Acute Assessment and Plan: Stable. Remote history of CABG and high risk percutaneous intervention and stent implantation 2018. Continue Plavix. (9) S/P aortic valve replacement with bioprosthetic valve: Code(s): Z95.3 - Presence of xenogenic heart valve Status: Acute Assessment and Plan: Recent ZA 05/13/2023 shows normal function of bioprosthetic aortic valve Subjective Date/time seen: 06/12/23 11:46 Interval history: Reason for visit: Acute on chronic HFrEF HPI: We are consulted for CHF. This is an 78 year old male patient of Dr. Vance's. He has coronary artery disease s/p CABG and PCI, SAVANNAH, hyperlipidemia, hypertension, atrial fibrillation/atrial flutter s/p ablation, history of bioprosthetic aortic valve replacement, heart failure with reduced ejection fraction. Patient presented for shortness of breath on exertion, increasing lower extremity edema, and a 6lb weight gain. He was actually seen in our office, and given decompensated heart failure, he was sent to the ER. ER workup showed SCr of 1.9. Troponins are 0.052, 0.060, 0.050. NT pro BNP is 5890. CXR with mild interstital edema. EKGs showed atrial fibrillation, old anteroseptal and inferior infarcts, STTW abnormality in the high lateral leads. No changes on EKG compared to previous. He has been started on IV Lasix, and has had improvement. Date of service 06/12: Reports urinating a good amount thus far. Legs still swollen. Review of Systems Review of Systems: All systems reviewed & are unremarkable except as noted in HPI and below (HPI) Exam
[2023-06-12] MEDS: traMADol HCL (*CRX) 50 MG TABLET PO (15:08)
[2023-06-12] MEDS: RIVAROXABAN 15 MG TABLET PO (16:59)
[2023-06-12] MEDS: GABAPENTIN 300 MG CAPSULE 600 MG PO (20:37)
[2023-06-12] MEDS: EZETIMIBE 10 MG TABLET PO (20:37)
[2023-06-13] VITALS (18 sets, daily range): BP systolic 101–124; BP diastolic 40–76; PULSE 50–93; RESP 11–24; TEMP 36.2–36.6; O2SAT 93–99
[2023-06-13 05:09] LABS: Basophils Percent Auto 0.5 % (0.2-1.2); Eosinophils Absolute Auto 0.2 K/mm3 (0-0.3); Eosinophils Percent Auto 4.4 % (0-4.4); Hematocrit 45.9 % (42.0-52.0); Hemoglobin 14.7 g/dL (14.0-18.0); Immature Granulocyte Absolute 0.01 K/mm3 (0.00-0.031); Immature Granulocyte Percent A 0.3 % (0-0.5); Immature Platelet Fraction Pct 8.2 % (0.9-11.2); Lymphocytes Absolute Auto 0.82 K/mm3 (0.9-3.2); Lymphocytes Percent Auto 21.4 % (18.3-44.2); Mean Corpuscular Hemoglobin 30.3 pg (26-34); Mean Corpuscular Volume 94.6 fl (80-100); Mean Platelet Volume 11.8 fl (7.4-10.4); Monocytes Absolute Auto 0.6 K/mm3 (0.1-0.6); Monocytes Percent Auto 15.9 % (2.6-8.5); Neutrophils Absolute Auto 2.2 K/mm3 (1.3-6.7); Neutrophils Percent Auto 57.5 % (45.5-73.1); Platelet Count Result 71 k/mm3 (150-375); Red Blood Count 4.85 M/mm3 (4.6-6.20); Red Cell Distribution Width 13.7 % (11.5-14.5); White Blood Count 3.8 K/mm3 (4.5-10.0)
[2023-06-13 05:26] LABS: Albumin Level 3.7 g/dL (3.5-5.1); Anion Gap 8 mmol/L (4-12); Blood Urea Nitrogen 56 mg/dL (9-20); Carbon Dioxide 29 mmol/L (22-30); Chloride 104 mmol/L (98-107); Estimated CRCL calculation 37 ml/min; Estimated Glomerular Filt Rate 34; Glucose 103 mg/dL (65-110); Magnesium 2.4 mg/dL (1.6-2.3); Phosphorus 3.7 mg/dL (2.5-4.5); Potassium 3.7 mmol/L (3.4-5.0); Sodium 141 mmol/L (137-145)
[2023-06-13 05:39] LABS: Anisocytosis 1+; Platelet Estimate Decreased (Adequate); Schistocytes None Seen
[2023-06-13] MEDS: ceFAZolin 1 GM/NS 50 ML 1 GM/50 ML BAG IVPB (08:56)
[2023-06-13] MEDS: OMEGA 3 POLYUNSAT FATTY ACIDS 1 GM CAP PO ×2 (08:57→17:06)
[2023-06-13] MEDS: GABAPENTIN 300 MG CAPSULE PO (08:57)
[2023-06-13] MEDS: FENOFIBRATE NANOCRYSTALLIZED 145 MG TABLET PO (08:57)
[2023-06-13] MEDS: DULoxetine HCL 30 MG CAPSULE.DR PO ×2 (08:58→17:06)
[2023-06-13] MEDS: CLOPIDOGREL BISULFATE 75 MG TABLET PO (08:58)
[2023-06-13] MEDS: TAMSULOSIN HCL 0.4 MG CAPSULE PO (08:58)
[2023-06-13] MEDS: SACUBITRIL/VALSARTAN 49-51 MG TABLET 1 TABLET PO ×2 (08:58→21:14)
[2023-06-13] MEDS: FUROSEMIDE INJ 40 MG/4 ML VIAL IV PUSH ×2 (08:58→17:06)
[2023-06-13] MEDS: MULTIVITAMINS THERAPEUTIC TAB (*BKC) 1 TABLET PO (08:58)
[2023-06-13] MEDS: allopurinoL 300 MG TABLET PO (08:58)
--- NOTE | 2023-06-13 09:12 | PM.PNCARD ---
Progress Note: A&P Assessment and Plan (1) Acute on chronic HFrEF (heart failure with reduced ejection fraction): Code(s): I50.23 - Acute on chronic systolic (congestive) heart failure Status: Acute Assessment and Plan: Recent ZA 05/13/2023 shows LVEF 25%, normal function of bioprosthetic aortic valve, moderate MR, massive left atrial dilatation. Continue IV Lasix for now. Perhaps he will be ready to shift to p.o. furosemide tomorrow. Please monitor strict I/Os. Increased his Entresto to 49/51mg BID. He is tolerating the increased dose well thus far. If his blood pressures tolerate the increased dose of Entresto well and his renal function remains stable, can consider adding Spironolactone or SGLT2-inhibitor. He was previously taken off of beta alejandro due to bradycardia, therefore, will not plan to retry him on a beta alejandro. (2) Elevated troponin: Code(s): R79.89 - Other specified abnormal findings of blood chemistry Status: Acute Assessment and Plan: Mildly elevated but flat. No chest pain. No ECG changes. Not consistent with an acute coronary syndrome. Likely demand ischemia from decompensated heart failure. (3) Renal insufficiency: Code(s): N28.9 - Disorder of kidney and ureter, unspecified Status: Acute Assessment and Plan: Closely monitor renal function while diuresing. As patient remains with volume overloaded, will continue with diuretics for now. (4) Cellulitis of right leg: Code(s): L03.115 - Cellulitis of right lower limb Status: Acute Assessment and Plan: On antibiotics, management as per Hospitalist. (5) Chronic anticoagulation: Code(s): Z79.01 - custodial (current) use of anticoagulants Status: Acute Assessment and Plan: Continue Xarelto. (6) Chronic atrial fibrillation: Code(s): I48.20 - Chronic atrial fibrillation, unspecified Status: Acute Assessment and Plan: Rate controlled without any medications. Continue Xarelto. (7) Mixed hyperlipidemia: Code(s): E78.2 - Mixed hyperlipidemia Status: Acute Assessment and Plan: Continue Zetia and fibrate (8) Coronary artery disease: Code(s): I25.10 - Atherosclerotic heart disease of [place] coronary artery without angina pectoris Status: Acute Assessment and Plan: Stable. Remote history of CABG and high risk percutaneous intervention and stent implantation 2018. Continue Plavix. (9) S/P aortic valve replacement with bioprosthetic valve: Code(s): Z95.3 - Presence of xenogenic heart valve Status: Acute Assessment and Plan: Recent ZA 05/13/2023 shows normal function of bioprosthetic aortic valve Subjective Date/time seen: 06/13/23 09:12 Interval history: Reason for visit: Acute on chronic HFrEF HPI: We are consulted for CHF. This is an 78 year old male patient of Dr. Vance's. He has coronary artery disease s/p CABG and PCI, SAVANNAH, hyperlipidemia, hypertension, atrial fibrillation/atrial flutter s/p ablation, history of bioprosthetic aortic valve replacement, heart failure with reduced ejection fraction. Patient presented for shortness of breath on exertion, increasing lower extremity edema, and a 6lb weight gain. He was actually seen in our office, and given decompensated heart failure, he was sent to the ER. ER workup showed SCr of 1.9. Troponins are 0.052, 0.060, 0.050. NT pro BNP is 5890. CXR with mild interstital edema. EKGs showed atrial fibrillation, old anteroseptal and inferior infarcts, STTW abnormality in the high lateral leads. No changes on EKG compared to previous. He has been started on IV Lasix, and has had improvement. Date of service 06/11: Reports urinating a good amount thus far. Legs still swollen. Date of service 06/13/2023: He's feeling better today. Swelling and redness in legs improving. Denies any shortness of breath. Urinating a lot.
[2023-06-13] MEDS: traMADol HCL (*CRX) 50 MG TABLET PO (13:33)
--- NOTE | 2023-06-13 15:28 | PM.IMPN ---
Progress Note: A&P Assessment and Plan (1) CHF exacerbation: Code(s): I50.9 - Heart failure, unspecified Status: Acute Assessment and Plan: Patient with CHF who noted increasing LE edema and MARSHALL in addition to orthopnea and 6 lb weight gain. ZA 05/13/23 shows LV enlargement with severe systolic dysfunction (EF 25%), severe LAE, moderate MR from dilation and posterior papillary muscle dysfxn and normal bioprosthetic aortic valve with trace AI. EKG on admission shows AFib rate of 70, PVCs with couplets, evidence of age-indeterminate anterior septal and inferior infarct with ST-T wave changes in the high lateral leads. ProBNP was 5890. Chest x-ray shows cardiomegaly with mild interstitial edema. Acute on chronic systolic congestive Heart failure Patient started on IV Lasix. Entresto continued and dose increased. No beta-alejandro due to bradycardia. Consider episodes of nonsustained V-tach as etiology of his worsening heart failure. Cardiology following and appreciate their input Monitor UOP, daily weights and clinical status (2) Renal insufficiency: Code(s): N28.9 - Disorder of kidney and ureter, unspecified Status: Acute Assessment and Plan: Creatinine was normal last year in May. Creatinine elevated in March 2023 at 1.9. Creatinine 1.9 on admission has remained stable Renal ultrasound shows a 2.1 cm left renal cyst otherwise kidneys. Tolerating diuretics and increased Entresto. Continue to follow. (3) Elevated troponin: Code(s): R79.89 - Other specified abnormal findings of blood chemistry Status: Acute Assessment and Plan: Troponin elevated to 0.06 but overall flat. [place] related to the heart failure exacerbation as well as due to the renal insufficiency. (4) Cellulitis of right leg: Code(s): L03.115 - Cellulitis of right lower limb Status: Acute Assessment and Plan: Patient with evidence of cellulitis to the right lower extremity. He has a history of cellulitis in lower extremities. Patient is immunosuppressed with tocilizumab White blood cell count was low-normal. Venous Doppler was negative for DVT. No blood cultures collected. Patient started on Ancef. Clinically appears much improved. Switched to Keflex Will follow. (5) Chronic atrial fibrillation: Code(s): I48.20 - Chronic atrial fibrillation, unspecified Status: Acute Assessment and Plan: Patient with chronic atrial fibrillation on Xarelto which has been continued. He is not on beta-alejandro due to history of bradycardia. Continue to monitor on telemetry. (6) Obstructive sleep apnea on CPAP: Code(s): G47.33 - Obstructive sleep apnea (adult) (pediatric) Status: Acute Assessment and Plan: Stable. Continue CPAP. (7) Rheumatoid arthritis: Qualifiers: Rheumatoid arthritis location: unspecified site Rheumatoid factor presence: unspecified presence Qualified Code(s): M06.9 - Rheumatoid arthritis, unspecified Code(s): M06.9 - Rheumatoid arthritis, unspecified Status: Acute Assessment and Plan: Stable. Patient takes tocilizumab. Side effects include neutropenia, thrombocytopenia and LOWELL Anti-plt Ab negative in March. Plt count low but stable. WBC 3800 with mild lymphopenia (ALC 820) LFTs okay. Hold tocilizumab for now Plan Code status - Full DVT prophylaxis on Xarelto Subjective Date/time seen: 06/13/23 15:28 Interval history: 78yo male with AFib and CHF here for leg eema and right LE erythema. Slept okay. Tolerated CPAP. No CP or SOB. Exam Narrative: AF 97.2 109/59 59 20 93% Gen - NARD Chest - dry bibasilar dry inspiratory crackles CV -irregularly irregular. S1-S2. Telemetry showing with AFib with PVCs and run of NSVT Abd - Soft, obese, NT, +BS Ext - trace R>L LE edema Psych - Nml mood and affect Skin - Chronic venous stasis skin changes bilateral L>R lower legs
[2023-06-13] MEDS: CEPHALEXIN 500 MG CAPSULE PO (17:05)
[2023-06-13] MEDS: RIVAROXABAN 15 MG TABLET PO (17:07)
[2023-06-13] MEDS: GABAPENTIN 300 MG CAPSULE 600 MG PO (21:14)
[2023-06-13] MEDS: EZETIMIBE 10 MG TABLET PO (21:14)
[2023-06-14] VITALS (12 sets, daily range): BP systolic 100–112; BP diastolic 55–75; PULSE 61–84; RESP 12–20; TEMP 36–36.5; O2SAT 95–100
[2023-06-14] MEDS: CEPHALEXIN 500 MG CAPSULE PO ×5 (00:42→21:16)
[2023-06-14 04:43] LABS: Basophils Percent Auto 0.9 % (0.2-1.2); Eosinophils Absolute Auto 0.2 K/mm3 (0-0.3); Eosinophils Percent Auto 4.4 % (0-4.4); Hematocrit 47.8 % (42.0-52.0); Hemoglobin 15.3 g/dL (14.0-18.0); Immature Granulocyte Absolute 0.01 K/mm3 (0.00-0.031); Immature Granulocyte Percent A 0.3 % (0-0.5); Immature Platelet Fraction Pct 8.4 % (0.9-11.2); Lymphocytes Absolute Auto 0.79 K/mm3 (0.9-3.2); Lymphocytes Percent Auto 23.3 % (18.3-44.2); Mean Corpuscular Hemoglobin 30.5 pg (26-34); Mean Corpuscular Volume 95.4 fl (80-100); Mean Platelet Volume 11.9 fl (7.4-10.4); Monocytes Absolute Auto 0.6 K/mm3 (0.1-0.6); Monocytes Percent Auto 16.8 % (2.6-8.5); Neutrophils Absolute Auto 1.8 K/mm3 (1.3-6.7); Neutrophils Percent Auto 54.3 % (45.5-73.1); Platelet Count Result 75 k/mm3 (150-375); Red Blood Count 5.01 M/mm3 (4.6-6.20); Red Cell Distribution Width 13.6 % (11.5-14.5); White Blood Count 3.4 K/mm3 (4.5-10.0)
[2023-06-14 04:59] LABS: Anion Gap 6 mmol/L (4-12); Blood Urea Nitrogen 59 mg/dL (9-20); Calcium 9.3 mg/dL (8.4-10.2); Carbon Dioxide 31 mmol/L (22-30); Chloride 102 mmol/L (98-107); Estimated CRCL calculation 39 ml/min; Estimated Glomerular Filt Rate 36; Glucose 112 mg/dL (65-110); Potassium 4.1 mmol/L (3.4-5.0); Sodium 139 mmol/L (137-145)
[2023-06-14 05:19] LABS: Anisocytosis 1+; Hypochromasia 1+; Platelet Estimate Decreased (Adequate); Schistocytes None Seen
[2023-06-14] MEDS: OMEGA 3 POLYUNSAT FATTY ACIDS 1 GM CAP PO ×2 (08:59→17:02)
[2023-06-14] MEDS: FENOFIBRATE NANOCRYSTALLIZED 145 MG TABLET PO (08:59)
[2023-06-14] MEDS: MULTIVITAMINS THERAPEUTIC TAB (*BKC) 1 TABLET PO (08:59)
[2023-06-14] MEDS: allopurinoL 300 MG TABLET PO (09:00)
[2023-06-14] MEDS: FUROSEMIDE 40 MG TABLET PO ×2 (09:00→17:01)
[2023-06-14] MEDS: GABAPENTIN 300 MG CAPSULE PO (09:00)
[2023-06-14] MEDS: MICONAZOLE NITRATE 2% CREAM 30 GM TUBE 1 APPLIC TOPICAL (09:00)
[2023-06-14] MEDS: TAMSULOSIN HCL 0.4 MG CAPSULE PO (09:00)
[2023-06-14] MEDS: DULoxetine HCL 30 MG CAPSULE.DR PO ×2 (09:00→17:01)
[2023-06-14] MEDS: SACUBITRIL/VALSARTAN 49-51 MG TABLET 1 TABLET PO ×2 (09:00→21:16)
[2023-06-14] MEDS: CLOPIDOGREL BISULFATE 75 MG TABLET PO (09:00)
[2023-06-14] MEDS: SENNA/DOCUSATE SODIUM TABLET 1 TAB PO (09:02)
--- NOTE | 2023-06-14 11:58 | PM.PNCARD ---
Progress Note: A&P Assessment and Plan (1) Acute on chronic HFrEF (heart failure with reduced ejection fraction): Code(s): I50.23 - Acute on chronic systolic (congestive) heart failure Status: Acute Plan 78-year-old man with: Heart failure with reduced ejection fraction he has a history of coronary disease previous surgical revascularization in previous bioprosthetic aortic valve replacement. He is improving with institution of medical therapy for his LV dysfunction. As noted in our previous progress notes beta-alejandro is not being used because of problematic bradycardia. He is tolerating increased dose of Entresto. I am going to start modest dose of spironolactone today. If he is doing well discharge tomorrow would be quite reasonable and I will insure that he has follow-up in a timely fashion with me in the office. Nico Vance MD [facility] Subjective Date/time seen: Date of service: 06/14/23 11:58 Interval history: Reason for visit: Acute on chronic HFrEF HPI: We are consulted for CHF. This is an 78 year old male patient of Dr. Vance's. He has coronary artery disease s/p CABG and PCI, SAVANNAH, hyperlipidemia, hypertension, atrial fibrillation/atrial flutter s/p ablation, history of bioprosthetic aortic valve replacement, heart failure with reduced ejection fraction. Patient presented for shortness of breath on exertion, increasing lower extremity edema, and a 6lb weight gain. He was actually seen in our office, and given decompensated heart failure, he was sent to the ER. ER workup showed SCr of 1.9. Troponins are 0.052, 0.060, 0.050. NT pro BNP is 5890. CXR with mild interstital edema. EKGs showed atrial fibrillation, old anteroseptal and inferior infarcts, STTW abnormality in the high lateral leads. No changes on EKG compared to previous. He has been started on IV Lasix, and has had improvement. Date of service 06/11: Reports urinating a good amount thus far. Legs still swollen. Date of service 06/13/2023: He's feeling better today. Swelling and redness in legs improving. Denies any shortness of breath. Urinating a lot. Date of service 06/14/2023: He is feeling better day by day shortness of breath is no longer a problem. Lower extremity edema is gradually improving he is hoping to get out of the hospital by [place] for a family celebration Exam Const: General: comfortable and no acute distress HENMT: Mouth: Yes moist mucous membranes Eyes: General: appearance normal, both eyes and all related structures Sclera: sclerae normal Neck: Neck: supple Resp: Effort & Inspection: normal respiratory effort Auscultation: crackles on the right at the base and diminished lung sounds Cardio: Rate: regular rate Rhythm: regular rhythm Other: Bilateral lower extremity edema Skin: General skin exam: erythema Other: Erythematous skin of bilateral lower extremities, R > L Neuro: Speech: normal speech Psych: Mental Status: mental status grossly normal Affect: normal affect Objective Data Vital Signs Vital Signs: Vital Signs - 24 hr 06/13/23 12:00 06/13/23 12:00 06/13/23 14:00 Temperature 36.3 C L Pulse Rate 69 93 73 Respiratory Rate 24 H Blood Pressure 104/40 L Pulse Oximetry 98 Oxygen Delivery 06/13/23 15:33 06/13/23 16:00 06/13/23 20:58 Temperature 36.2 C L 36.4 C Pulse Rate 59 L 61 72 Respiratory Rate 20 20 Blood Pressure 109/59 L 117/58 L Pulse Oximetry 93 99 Oxygen Delivery 06/13/23 20:00 06/13/23 20:00 06/13/23 23:50 Temperature 36.4 C Pulse Rate 72 73 76 Respiratory Rate 20 20 Blood Pressure 101/67 Pulse Oximetry 99 98 Oxygen Delivery Room Air 06/14/23 00:00 06/13/23 23:35 06/13/23 23:36 Temperature Pulse Rate 64 66 Respiratory Rate 18 Blood Pressure Pulse Oximetry 95 95 Oxygen Delivery Room Air Autopap 06/14/23 04:28 06/14/23 04:00 06/14/23 03:35 Temperature 36.5 C Pulse Rate 61 69 68 Respiratory Rate 2
[2023-06-14 16:47] LABS: Chloride Rand Ur 70 mmol/L (32-290); Chloride/Creatinine Rand Ur 104 (23-275); Creatinine Random Urine 67 mg/dL (20-320)
--- NOTE | 2023-06-14 17:01 | PM.IMPN ---
Progress Note: A&P Assessment and Plan (1) CHF exacerbation: Code(s): I50.9 - Heart failure, unspecified Status: Acute Assessment and Plan: Patient with CHF who noted increasing LE edema, MARSHALL, orthopnea and 6 lb weight gain. ZA 05/13/23 shows LV enlargement with severe systolic dysfunction (EF 25%), severe LAE, moderate MR from dilation and posterior papillary muscle dysfxn and normal bioprosthetic aortic valve with trace AI. EKG on admission shows AFib rate of 70, PVCs with couplets, evidence of age-indeterminate anterior septal and inferior infarct with ST-T wave changes in the high lateral leads. ProBNP was 5890. Chest x-ray shows cardiomegaly with mild interstitial edema. Acute on chronic systolic congestive Heart failure Patient started on IV Lasix. Entresto continued and dose increased. No beta-alejandro due to bradycardia. Consider episodes of nonsustained V-tach as etiology of his worsening heart failure. Cardiology following and appreciate their input Expect the RLE edema related to resolving cellulitis. Spironolactone added. Change to oral Lasix. Monitor UOP, renal fxn, daily weights and clinical status (2) Renal insufficiency: Code(s): N28.9 - Disorder of kidney and ureter, unspecified Status: Acute Assessment and Plan: Creatinine was normal May 2022. Creatinine elevated in March 2023 at 1.9. Creatinine 1.9 on admission here and has remained stable Renal ultrasound shows a 2.1 cm left renal cyst otherwise normal kidneys. Tolerating diuretics and increased Entresto. Spironolactone added Continue to follow. (3) Elevated troponin: Code(s): R79.89 - Other specified abnormal findings of blood chemistry Status: Acute Assessment and Plan: Troponin elevated to 0.06 but overall flat. [place] related to the heart failure exacerbation as well as due to the renal insufficiency. (4) Cellulitis of right leg: Code(s): L03.115 - Cellulitis of right lower limb Status: Acute Assessment and Plan: Patient with evidence of cellulitis to the right lower extremity. He has a history of cellulitis in the lower extremities. Patient is immunosuppressed with tocilizumab White blood cell count remains low-normal. Venous Doppler was negative for DVT. No blood cultures collected. Patient started on Ancef and clinically much improved. Changed to Keflex 06/12 Will follow. (5) Chronic atrial fibrillation: Code(s): I48.20 - Chronic atrial fibrillation, unspecified Status: Acute Assessment and Plan: Patient with chronic atrial fibrillation on Xarelto which has been continued. He is not on beta-alejandro due to history of bradycardia. Continue to monitor on telemetry. (6) Obstructive sleep apnea on CPAP: Code(s): G47.33 - Obstructive sleep apnea (adult) (pediatric) Status: Acute Assessment and Plan: Stable. Continue CPAP. (7) Rheumatoid arthritis: Qualifiers: Rheumatoid arthritis location: unspecified site Rheumatoid factor presence: unspecified presence Qualified Code(s): M06.9 - Rheumatoid arthritis, unspecified Code(s): M06.9 - Rheumatoid arthritis, unspecified Status: Acute Assessment and Plan: Stable. Patient takes tocilizumab. Side effects include neutropenia, thrombocytopenia and LOWELL Anti-plt Ab negative in March. Plt count low but stable. WBC 3800 with mild lymphopenia (ALC 820) LFTs okay. Hold tocilizumab for now Plan Code status - Full DVT prophylaxis on Xarelto Subjective Date/time seen: 06/14/23 17:01 Interval history: 78yo male with AFib and CHF here for leg eema and right LE erythema. No issues overnight. Feels tired today but did sleep well last night. He wore his bipap. No CP or SOB. Up walking in the halls. Exam Narrative: AF 97.4 112/75 84 20 96% ra Gen - NARD Chest - bibasilar dry inspiratory crackles o/w clear CV -irregula
[2023-06-14] MEDS: RIVAROXABAN 15 MG TABLET PO (17:02)
[2023-06-14] MEDS: EZETIMIBE 10 MG TABLET PO (21:16)
[2023-06-14] MEDS: GABAPENTIN 300 MG CAPSULE 600 MG PO (21:16)
[2023-06-15] VITALS (7 sets, daily range): BP systolic 95–117; BP diastolic 57–68; PULSE 61–92; RESP 16–20; TEMP 36.1–36.6; O2SAT 93–100
[2023-06-15 04:44] LABS: Hematocrit 49.2 % (42.0-52.0); Hemoglobin 15.5 g/dL (14.0-18.0); Immature Platelet Fraction Pct 8.1 % (0.9-11.2); Mean Corpuscular HGB Conc 31.5 g/dl (32-36); Mean Corpuscular Hemoglobin 29.9 pg (26-34); Mean Corpuscular Volume 94.8 fl (80-100); Mean Platelet Volume 12.5 fl (7.4-10.4); Platelet Count Result 80 k/mm3 (150-375); Red Blood Count 5.19 M/mm3 (4.6-6.20); Red Cell Distribution Width 13.4 % (11.5-14.5); White Blood Count 3.6 K/mm3 (4.5-10.0)
[2023-06-15 04:54] LABS: Anion Gap 9 mmol/L (4-12); Blood Urea Nitrogen 60 mg/dL (9-20); Calcium 9.5 mg/dL (8.4-10.2); Carbon Dioxide 26 mmol/L (22-30); Chloride 103 mmol/L (98-107); Estimated CRCL calculation 46 ml/min; Estimated Glomerular Filt Rate 45; Glucose 113 mg/dL (65-110); Sodium 138 mmol/L (137-145)
[2023-06-15] MEDS: CEPHALEXIN 500 MG CAPSULE PO ×2 (06:12→11:32)
[2023-06-15] MEDS: allopurinoL 300 MG TABLET PO (08:23)
[2023-06-15] MEDS: TAMSULOSIN HCL 0.4 MG CAPSULE PO (08:23)
[2023-06-15] MEDS: SPIRONOLACTONE 25 MG TABLET PO (08:23)
[2023-06-15] MEDS: FUROSEMIDE 40 MG TABLET PO (08:23)
[2023-06-15] MEDS: OMEGA 3 POLYUNSAT FATTY ACIDS 1 GM CAP PO (08:23)
[2023-06-15] MEDS: FENOFIBRATE NANOCRYSTALLIZED 145 MG TABLET PO (08:23)
[2023-06-15] MEDS: DULoxetine HCL 30 MG CAPSULE.DR PO (08:23)
[2023-06-15] MEDS: GABAPENTIN 300 MG CAPSULE PO (08:23)
[2023-06-15] MEDS: SACUBITRIL/VALSARTAN 49-51 MG TABLET 1 TABLET PO (08:23)
[2023-06-15] MEDS: CLOPIDOGREL BISULFATE 75 MG TABLET PO (08:23)
[2023-06-15] MEDS: MULTIVITAMINS THERAPEUTIC TAB (*BKC) 1 TABLET PO (08:23)
[2023-06-15] MEDS: MICONAZOLE NITRATE 2% CREAM 30 GM TUBE 1 APPLIC TOPICAL (08:24)
--- NOTE | 2023-06-15 14:27 | PM.DS ---
DS: Admitting Diagnosis Discharge Date 06/15/23 Admitting Diagnosis Leg edema. DS: Discharge Diagnosis Discharge Diagnosis (1) CHF exacerbation: Code(s): I50.9 - Heart failure, unspecified Status: Acute (2) Renal insufficiency: Code(s): N28.9 - Disorder of kidney and ureter, unspecified Status: Acute (3) Elevated troponin: Code(s): R79.89 - Other specified abnormal findings of blood chemistry Status: Acute (4) Cellulitis of right leg: Code(s): L03.115 - Cellulitis of right lower limb Status: Acute (5) Chronic atrial fibrillation: Code(s): I48.20 - Chronic atrial fibrillation, unspecified Status: Acute (6) Obstructive sleep apnea on CPAP: Code(s): G47.33 - Obstructive sleep apnea (adult) (pediatric) Status: Acute (7) Rheumatoid arthritis: Qualifiers: Rheumatoid arthritis location: unspecified site Rheumatoid factor presence: unspecified presence Qualified Code(s): M06.9 - Rheumatoid arthritis, unspecified Code(s): M06.9 - Rheumatoid arthritis, unspecified Status: Acute Assessment and Plan: Stable. Patient takes tocilizumab. Side effects include neutropenia, thrombocytopenia and LOWELL Anti-plt Ab negative in March. Plt count low but stable. WBC 3800 with mild lymphopenia (ALC 820) LFTs okay. Hold tocilizumab for now DS: Summary Hospital Course Reason for hospitalization: 78yo male with AFib and CHF here for leg edema and right LE erythema. Please see H&P for detials. Hospital Course: Patient preents with evidence of acute on chronic systolic CHF with increasing LE edema, MARSHALL, orthopnea and 6 lb weight gain.?ZA 05/13/23 shows LV enlargement with severe systolic dysfunction (EF 25%), severe LAE, moderate MR from dilation and posterior papillary muscle dysfxn and normal bioprosthetic aortic valve with trace AI. EKG on admission shows AFib rate of 70, PVCs with couplets, evidence of age-indeterminate anterior septal and inferior infarct with ST-T wave changes in the high lateral leads. ProBNP was 5890.? Chest x-ray shows cardiomegaly with mild interstitial edema. Patient started on IV Lasix. Creatinine was normal May 2022 but was 1.9 in March 2023. Entresto continued and dose increased. No beta-alejandro due to hx of bradycardia. Cardiology following and appreciate their input. Patient with clinical improvement expect the RLE edema related to resolving cellulitis. Patient with evidence of cellulitis to the right lower extremity.? He has a history of cellulitis in the lower extremities. Patient is immunosuppressed with tocilizumab. White blood cell count remains low-normal and low platelets which is chronic felt related to infection and from tocilizumab. Venous Doppler was negative for DVT. No blood cultures collected.? Patient started on Ancef and clinically much improved. Changed to Keflex. Spironolactone added. Changed to oral Lasix. Creatinine 1.9 on admission here and actually improved to 1.5. Renal ultrasound shows a 2.1 cm left renal cyst otherwise normal kidneys. he was up ambulating in the room. He overall did well and was able to be discharged home on 06/15/23. Status at Discharge Cognitive/behavioral status at discharge: stable Time Spent with Patient Time attestation: Total time spent providing and/or coordinating discharge services: 35 minutes Time spent: Greater than 30 minutes Exam Narrative: AF 96.9 111/57 85 16 98% ra Gen - NARD Chest - distant clear BS CV -irregularly irregular. S1-S2. Telemetry showing with AFib Abd - Soft, obese, NT, +BS Ext - trace Rt LE edema Psych - Nml mood and affect Skin - Chronic venous stasis skin changes bilateral lower legs. Scant erythema with ecchymosis medial aspect of the right mitchell. skin abrasion to the left medial mitchell DS: Data Data Completed and Pending Labs on day of discharge: Labs from last 24 hours 06/15/23
== END 2023-06-15 14:48 | disposition home or self-care (01) | DRG 292 ==
LOC: ANHED 16:16 → ANHIMU 16:47
PROVIDERS: Physician Assistant; Admitting Provider Internal Medicine; Emergency Provider Emergency Medicine; PCP Family Medicine; Visit Provider Internal Medicine
DX: I50.23 Acute on chronic systolic (congestive) heart failure (principal); I48.20 Chronic atrial fibrillation, unspecified; L03.115 Cellulitis of right lower limb; D69.6 Thrombocytopenia, unspecified; G47.33 Obstructive sleep apnea (adult) (pediatric); I25.10 Atherosclerotic heart disease of native coronary artery without angina pectoris; I48.91 Unspecified atrial fibrillation; I08.0 Rheumatic disorders of both mitral and aortic valves; M06.9 Rheumatoid arthritis, unspecified; N28.9 Disorder of kidney and ureter, unspecified; Z79.02 Long term (current) use of antithrombotics/antiplatelets; Z79.01 Long term (current) use of anticoagulants; Z95.2 Presence of prosthetic heart valve; Z95.1 Presence of aortocoronary bypass graft; Z99.89 Dependence on other enabling machines and devices; Z96.652 Presence of left artificial knee joint; Z96.612 Presence of left artificial shoulder joint; Z96.611 Presence of right artificial shoulder joint
CPT/HCPCS: 36415; 71046; 76775; 80048; 80053; 80069; 82436; 82570; 83735; 83880; 84133; 84300; 84484; 85025; 85027; 85055; 85610; 85730; 93005; 93970; 94003; 99285; A9270; J0690; J1940; J2270